=== PATIENT | female | born 1980 | race Caucasian/White ===

== ENCOUNTER → 2023-11-03 08:05 | Outpatient (REF) | payer OTHER, SELFPAY | LOC: WDC 08:05 | PROVIDERS: ATTENDING PHYSICIAN Nurse Practitioner Family; FAMILY PHYSICIAN Registered Nurse | DX: Z12.31 Encounter for screening mammogram for malignant neoplasm of breast (principal) | CPT/HCPCS: 77063; 77067 ==

== ENCOUNTER 2023-11-30 15:56 | Emergency (ER) | payer OTHER, SELFPAY ==
[2023-11-30 16:10] VITALS: BP 135/95
[2023-11-30] MEDS: XANAX 0.5 MG PO (16:20)
--- NOTE | 2023-11-30 16:20 | ED.PDOC.TRB ---
ED Provider Triage
-
A medical screening examination has been initiated by a qualified medical provider. Based on the assessment performed at this time, it has been determined that an emergent medical condition may exist and the patient has been informed that further
medical evaluation and possible additional diagnostic testing may be needed.
HPI: This is a medical evaluation conducted in person to initiate diagnostic evaluation and provide initial therapeutics. Please see further documentation by the treating clinician.
GENERAL: Alert , tearful but calm and cooperative
NECK: Trachea midline
ENT: No visible abnormalities.
LUNGS: No acute respiratory distress
NEUROLOGICAL: Alert and oriented
SKIN: Skin intact. No visible changes.
MUSCULOSKELETAL: Moving extremities normally
PSYCH: Calm and cooperative
43-year-old female with history of bipolar disorder on lithium and Wellbutrin reporting with her for concerns for SI which has been most severe than she has ever had before. Patient has episodes of enmanuel and depression no dizziness severe
depression currently. Her is never seen her like this. She took 1 extra tablet of Ativan 2 nights ago and has been making comments to him about not wanting to live. He brought her in for crisis evaluation and patient while over in the
crisis department was becoming quite agitated. They sent her here for workup and potentially medication for her anxiety. Patient is calm cooperative, flat affect here. She is complaining of headache which is chronic because of her migraines but
also she said that she is having a hard time focusing. She is not sleeping well. She denies taking any other drugs or alcohol within 10 to harm herself.
Patient says Xanax actually helps her better than Ativan to be calm. Will evaluate with labs and a head CT given her headache with visual changes but I suspect this is all related to her not sleeping and being depressed. Patient will need
placement via crisis after being medically cleared
[2023-11-30 16:56] VITALS: BMI 20.2
[2023-11-30 17:11] LABS: % Basophils 0.5 % (0-2); % Eosinophils 2.4 % (0-6); % Immature Granulocytes 0.4 % (0-0.5); % Lymphocytes 19.4 % (20.5-51.1); % Monocytes 5.3 % (1.7-9.3); Absolute Basophils 0.1 10^3/uL (0-0.2); Absolute Eosinophils 0.3 10^3/uL (0-0.7); Absolute Monocytes 0.6 10^3/uL (0.1-0.6); Absolute Neutrophils 7.5 10^3/uL (1.4-6.5); Hematocrit 40.3 % (37.0-47.0); Hemoglobin 14.5 g/dL (12.0-16.0); Mean Corpuscular Hgb 33.9 pg (27.0-31.0); Mean Corpuscular Volume 94.2 fL (81.0-99.0); Mean Platelet Volume 9.2 fL (7.4-10.4); Nucleated Red Blood Cells % 0 %; Platelet Count 297 10^3/uL (130-400); Red Blood Cell Count 4.28 10^6/uL (4.20-5.40); Red Cell Dist. Width 12.4 % (11.5-14.5); White Blood Cell Count 10.5 10^3/uL (4.8-10.8)
[2023-11-30 17:21] LABS: HCG, Serum Qualitative Screen Negative
[2023-11-30 17:23] LABS: ALT (SGPT) 21 U/L (0-35); AST (SGOT) 29 U/L (14-36); Albumin 5.2 g/dl (3.5-5.0); Alkaline Phosphatase 63 U/L (38-126); Blood Urea Nitrogen 17 mg/dl (7-17); Calcium 10.4 mg/dl (8.4-10.2); Carbon Dioxide 24 mmol/L (22-30); Chloride 103 mmol/L (98-107); Estimated Creatinine Clearance 92 ml/min; Glucose 81 mg/dl (70-99); Lithium 0.3 mmol/L (0.6-1.2); Potassium 4.1 mmol/L (3.5-5.1); Sodium 140 mmol/L (135-145); Total Bilirubin 1.2 mg/dl (0.2-1.3); eGFR > 60.00
[2023-11-30 18:39] VITALS: BP 118/77
--- NOTE | 2023-11-30 18:57 | ED.GENMED ---
History of Present Illness
General
Chief Complaint: Psychiatric Problem
Source: patient and spouse
Time Seen by Provider: 11/30/23 18:20
History of Present Illness
History of Present Illness:
43-year-old female presents emergency department with increasing thoughts of increasing depression, suicidal ideation with a plan of taking excessive Xanax. Patient was brought over the emergency department for medical clearance. She also notes
intermittent headaches and when she gets very upset her vision will feel like it is 'closing in' although she is not experiencing that now. She denies numbness, tingling, focal weakness, chest pain, shortness of breath, or other complaints. Exam
unremarkable here with the exception of flat affect. Labs CT unremarkable.
Past History
Past History
ED Past Medical History: Hypothyroidism and Psychiatric
Social History
Tobacco: Non-smoker
Alcohol: Occasional
Drug: None
Personal:
Living: with family
Employment: Employed
Family History
Family History: CAD and Other (A. fib); Negative Early CAD
Phy Exam
Physical Exam
Physical Exam:
GENERAL: Alert , in no apparent distress
EYE: pupils equal and reactive
NECK: Supple, no significant adenopathy.
ENT: o/p clr, mmm.
CARDIAC: Regular rate and rhythm .
LUNGS: Clear breath sounds bilaterally, no acute respiratory distress, no wheezes/rales/rhonchi
ABDOMEN: Soft, without focal tenderness, no r/g, no cvat
NEUROLOGICAL: Alert and oriented, no focal neuro deficits
SKIN: Warm and dry, skin intact.
MUSCULOSKELETAL: No edema, well perfused.
PSYCH: Flat affect, tearful at times
Course
Orders/Labs/Results
Orders:
Orders
11/30/23 16:13
Test Result ONCE
11/30/23 16:18
Alprazolam [Xanax] 0.5 mg PO NOW STA
11/30/23 16:19
CT Head W/o Iv Contrast Urgent
Comment:
Reason For Exam: headache, depression, SI;
Alprazolam [Xanax] 0.5 mg .ROUTE .STK-MED ONE
11/30/23 17:02
CMP [Comprehensive Metabolic Panel] Urgent
Complete Blood Count/With Diff Urgent
HCG, Serum Qualitative Screen Urgent
[place] Urgent
Abnormal Lab Results
11/30/23
17:02
MCH 33.9 H pg
(27.0-31.0)
Absolute Neuts (auto) 7.5 H 10^3/uL
(1.4-6.5)
Lymphocytes % 19.4 L %
(20.5-51.1)
Calcium 10.4 H mg/dl
(8.4-10.2)
Albumin 5.2 H g/dl
(3.5-5.0)
[place] 0.3 L mmol/L
(0.6-1.2)
11/30/23 17:02
11/30/23 17:02
Vital Signs
Initial and Last Documented VS:
Initial Vital Signs
Temp Pulse Resp BP Pulse Ox
98.1 F 106 18 135/95 98
11/30/23 16:10 11/30/23 16:10 11/30/23 16:10 11/30/23 16:10 11/30/23 16:10
Last Documented Vital Signs
Temp Pulse Resp BP Pulse Ox
98.1 F 89 16 118/77 100
11/30/23 16:10 11/30/23 18:39 11/30/23 18:39 11/30/23 18:39 11/30/23 18:39
*Critical Care Note
Total Time (30-74mins, 75-104mins- exclusive of procedures): Not Applicable
Update Note
Update Note:
Patient presents to the Emergency Department with ___depression
Number and Complexity of Problems Addressed at the Encounter
� Chronic conditions affecting care:
� Acute Exacerbation and/or Progression of Chronic Illness:
� Differential Diagnosis includes: But not limited to depressive episode, anxiety, brain tumor, etc.
Amount and/or Complexity of Data to be Reviewed and Analyzed
� I performed an independent evaluation of and my interpretation is:
EKG:
CT: NAD
Xrays:
Laboratory Studies: Unremarkable
Other:
� Review of other/old records reveals:
� Clinical information was obtained by an independent historian:
� Prescriptions/Medications Considered but not given:
� Further testing considered but not performed:
Risk of Complications and/or Morbidity or Mortality of Patient Management
� Social determinants of health affecting care:
� Discussion with other providers (PCP, Hospitalists, Consultants, etc):
� Escalation of care including admission/observation vs risk of discharge considered: 7:01 PM patient does express to me feeling suicidal throughout the week and while she does not want to at this moment describes having a
plan. I strongly recommend that patient be placed inpatient for care. Case discussed with Emilia from crisis who agrees. Patient is medically cleared and will go over to crisis for further management.
ED Attending Note
-
Portions of this chart may have been created with voice recognition software.� Occasional wrong word or��sound alike� substitutions may have occurred due to the inherent limitations of voice recognition software.
Discharge Plan
Departure
Patient Disposition: Psych Facility
Date of Disposition: 11/30/23
Time of Disposition: 19:04
Condition: Fair
Discharge Problem:
Depression
Prescriptions:
No Action
Ativan:
1 tab PO HSPRN PRN (Reason: anxiety)
bupropion HCl 150 MG tablet sustained-release 12 hr
150 mg PO DAILY
lithium carbonate 150 MG capsule
300 mg PO HS
dextroamphetamine-amphetamine [Adderall XR] 20 MG capsule,extended release 24hr
20 mg PO DAILY
Referrals:
UNKNOWN - PT NOT,INTERVIEWE [Family Provider] -
Interventions
Interventions:
*Risk Screen - Suicide Last Done: 11/30/23 18:39
*General Assessment Last Done: 11/30/23 18:39
*Neglect/Abuse Screening Last Done: 11/30/23 18:39
ED- Fall Risk Assessment Last Done: 11/30/23 17:12
*ED COVID-19 Vaccine History Last Done: 11/30/23 18:39
*Nursing Disposition Last Done: 11/30/23 19:19
ED-Psychological Assessment Last Done: 11/30/23 17:12
Discharge Date and Time
Discharge Date/Time: 11/30/23 19:20
Print Language: [place]
== END 2023-11-30 19:20 ==
LOC: EMR 15:56
PROVIDERS: EMERGENCY PHYSICIAN Emergency Medicine
DX: F32.A Depression, unspecified (principal); R45.851 Suicidal ideations; R45.1 Restlessness and agitation; Z02.79 Encounter for issue of other medical certificate; F31.9 Bipolar disorder, unspecified; E03.9 Hypothyroidism, unspecified; G43.909 Migraine, unspecified, not intractable, without status migrainosus; Z91.030 Bee allergy status; Z91.010 Allergy to peanuts
CPT/HCPCS: 99284; 70450; 80053; 80178; 84703; 85025

== ENCOUNTER 2024-05-31 19:31 | Inpatient (IN) | payer OTHER, SELFPAY ==
[2024-05-31 09:34] VITALS: BP 106/67
[2024-05-31 09:56] LABS: % Basophils 0.5 % (0-2); % Eosinophils 4.6 % (0-6); % Immature Granulocytes 0.3 % (0-0.5); % Lymphocytes 21.6 % (20.5-51.1); % Monocytes 10.2 % (1.7-9.3); % Neutrophils 62.8 % (42.2-75.2); Absolute Eosinophils 0.4 10^3/uL (0-0.7); Absolute Lymphocytes 1.9 10^3/uL (1.2-3.4); Absolute Monocytes 0.9 10^3/uL (0.1-0.6); Absolute Neutrophils 5.5 10^3/uL (1.4-6.5); Hematocrit 44.6 % (37.0-47.0); Hemoglobin 14.9 g/dL (12.0-16.0); Mean Corp Hgb Conc. 33.4 g/dL (33.0-37.0); Mean Corpuscular Hgb 32.7 pg (27.0-31.0); Mean Platelet Volume 9.1 fL (7.4-10.4); Nucleated Red Blood Cells % 0 %; Platelet Count 192 10^3/uL (130-400); Red Blood Cell Count 4.55 10^6/uL (4.20-5.40); Red Cell Dist. Width 13.3 % (11.5-14.5); White Blood Cell Count 8.7 10^3/uL (4.8-10.8)
[2024-05-31 09:58] LABS: Urine Albumin 1+ (Neg - Trace); Urine Bilirubin Negative (Negative); Urine Character Clear (Clear); Urine Color Yellow; Urine Glucose Negative (Negative); Urine Ketone Negative (Negative); Urine Leukocyte 1+ (Negative); Urine Nitrite Negative (Negative); Urine Occult Blood Negative (Negative); Urine Urobilinogen 2+ (Neg - 1+)
[2024-05-31 10:11] LABS: HCG, Serum Qualitative Screen Negative
[2024-05-31 10:12] LABS: Albumin 3.9 g/dl (3.5-5.0); Alkaline Phosphatase 141 U/L (38-126); Blood Urea Nitrogen 13 mg/dl (7-17); Calcium 9.7 mg/dl (8.4-10.2); Carbon Dioxide 27 mmol/L (22-30); Chloride 102 mmol/L (98-107); Glucose 83 mg/dl (70-99); Lipase 257 U/L (23-300); Potassium 4.2 mmol/L (3.5-5.1); Sodium 134 mmol/L (135-145); Total Bilirubin 2.3 mg/dl (0.2-1.3); Total Protein 6.8 g/dl (6.3-8.2); eGFR > 60.00
[2024-05-31 10:48] LABS: AST (SGOT) 1074 U/L (14-36)
[2024-05-31 10:49] LABS: ALT (SGPT) 1363 U/L (0-35)
[2024-05-31 11:04] LABS: Urine Squamous Cell 26-30 /LPF (Few)
[2024-05-31 11:05] LABS: Urine Amorphous Seen; Urine Red Blood Cell 0-2 /HPF (0-2)
[2024-05-31 11:06] LABS: Urine Bacteria Few (Negative)
[2024-05-31 11:07] LABS: Urine Mucus Few
[2024-05-31 12:02] VITALS: BP 111/79; BMI 20.9
[2024-05-31] MEDS: NSS 1000 IV (12:07)
[2024-05-31] MEDS: TORADOL 15 MG IV (12:13)
[2024-05-31] MEDS: ZOFRAN 4 MG IV (12:14)
[2024-05-31 12:28] LABS: INR 1.35; PT 16.9 Sec (11.4-14.6)
[2024-05-31 12:31] LABS: Hepatitis B Surface Antibody Negative; Hepatitis C Antibody Negative (Negative)
[2024-05-31 13:00] VITALS: BP 104/66
--- NOTE | 2024-05-31 14:16 | ED.GENMED ---
History of Present Illness
General
Chief Complaint: Abdominal Pain
Source: patient and spouse
Exam Limitations: none
Time Seen by Provider: 05/31/24 11:01
Nursing documentation reviewed up to this point in time: agreed with
History of Present Illness
History of Present Illness:
43-year-old female presenting to the emergency department today with concerns of generalized weakness fatigue over the past month or so but worsening abdominal pain over the past week and a half to the right upper quadrant has had nausea no vomiting
or diarrhea. Denies any specific inciting event no recent international travel no recent upper respiratory infections and no alcohol use. No new medications no recent antibiotic use
Past History
Past History
ED Past Medical History: Hypothyroidism and Psychiatric
Social History
Tobacco: Non-smoker
Alcohol: Occasional
Drug: None
Personal:
Living: with family
Employment: Employed
Family History
Family History: CAD and Other (A. fib); Negative Early CAD
Review of Systems
Review of Systems
Allergies reviewed?: Yes
All Other Systems: ROS reviewed and negative except as documented in HPI and ROS
Phy Exam
Physical Exam
Physical Exam:
GENERAL: Alert , in no apparent distress
EYE: pupils equal and reactive
NECK: Supple, no significant adenopathy.
ENT: o/p clr, mmm.
CARDIAC: Regular rate and rhythm .
LUNGS: Clear breath sounds bilaterally, no acute respiratory distress, no wheezes/rales/rhonchi
ABDOMEN: Vague discomfort to the right upper quadrant otherwise soft abdomen
NEUROLOGICAL: Alert and oriented, no focal neuro deficits
SKIN: Warm and dry, skin intact.
MUSCULOSKELETAL: No edema, well perfused.
PSYCH: Normal and appropriate interaction.
Course
Orders/Labs/Results
Orders:
Orders
05/31/24 09:38
Test Result ONCE
05/31/24 09:46
Complete Blood Count/With Diff Urgent
Comprehensive Metabolic Panel Urgent
HCG, Serum Qualitative Screen Urgent
Comment: Notify provider if positive test present
Hepatitis A Antibody, Total Urgent
Comment: ADD
Hepatitis A IgM Antibody Stat
Hepatitis B Core Ab, IgM Stat
Hepatitis B Surface Antibody Urgent
Comment: ADD
Hepatitis C Antibody Urgent
Comment: ADD
Lipase Urgent
[place] Urgent
Comment: ADD ON
Monotest Stat
Urinalysis Reflex To Culture Urgent
Date Specimen was Collected: 05/31/24
Time Specimen was Collected: 09:38
Urine Microscopic Reflex Cult Urgent
Urine Culture Urgent
WOOD Source: U
Specimen Description:
Date Specimen was Collected: 05/31/24
Time Specimen was Collected: 09:38
05/31/24 11:02
Add On- LAB Urgent
Tests Added?: ED Hepatitis panel
05/31/24 11:43
US Abdomen Complete/Upper Urgent
Comment:
Reason For Exam: ruq pain, elevated bili/lfts
05/31/24 11:54
Ketorolac [Toradol] 15 mg IV NOW STA
05/31/24 11:55
0.9% Sodium Chloride 1000 ml [Nss] 1,000 ml IV BOLUS
05/31/24 12:06
PT/INR [Prothrombin Time] Urgent
05/31/24 12:12
Ondansetron Injectable [Zofran] 4 mg .ROUTE .STK-MED ONE
05/31/24 12:14
Ondansetron Injectable [Zofran] 4 mg IV NOW STA
05/31/24 14:16
Add On- LAB Urgent
Tests Added?: lithium level
05/31/24 16:25
Add On- LAB Stat
Tests Added?: MONO
Abnormal Lab Results
05/31/24 05/31/24
09:46 12:06
MCH 32.7 H pg
(27.0-31.0)
Absolute Monos (auto) 0.9 H 10^3/uL
(0.1-0.6)
Monocytes % 10.2 H %
(1.7-9.3)
PT 16.9 H Sec
(11.4-14.6)
Sodium 134 L mmol/L
(135-145)
Total Bilirubin 2.3 H mg/dl
(0.2-1.3)
AST 1074 H* U/L
(14-36)
ALT 1363 H* U/L
(0-35)
Alkaline Phosphatase 141 H U/L
(38-126)
Urine Urobilinogen 2+ A
(Neg - 1+)
Leukocyte Esterase Rfl 1+ A
(Negative)
Urine Bacteria (Reflex) Few A
(Negative)
Urine Albumin (Reflex) 1+ A
(Neg - Trace)
05/31/24 09:46
05/31/24 09:46
Vital Signs
Initial and Last Documented VS:
Initial Vital Signs
Temp Pulse Resp BP Pulse Ox
97.8 F 89 16 106/67 100
05/31/24 09:34 05/31/24 09:34 05/31/24 09:34 05/31/24 09:34 05/31/24 09:34
Last Documented Vital Signs
Temp Pulse Resp BP Pulse Ox
97.8 F 78 16 104/66 95
05/31/24 09:34 05/31/24 16:50 05/31/24 09:34 05/31/24 13:00 05/31/24 16:30
MDM/Problems Addressed
MDM/Problems Addressed:
43-year-old female presenting to the emergency department today with concerns of right upper quadrant pain worsening over the past week and a half vague generalized symptoms over the past month. On initial labs patient has significant transaminitis
elevated bili. Labs consistent with hepatitis. Acute hepatitis panel was sent ultrasound showing hepatitis but otherwise no emergent findings specifically. Gastroenterology recommending additional testing plan to admit for further assessment.
*Critical Care Note
Total Time (30-74mins, 75-104mins- exclusive of procedures): Not Applicable
ED Attending Note
-
Portions of this chart may have been created with voice recognition software.� Occasional wrong word or��sound alike� substitutions may have occurred due to the inherent limitations of voice recognition software.
Discharge Plan
Departure
Patient Disposition: Admit
Date of Disposition: 05/31/24
Time of Disposition: 17:53
Admit to: Med/Surg
Admit to doctor: Zora
Presentation/result/management discussed w/ accepting MD/DO: Hospitalist
Patient with high blood pressure during this ER visit?: No
Condition: Good
Covid-19: Not Applicable
Discharge Problem:
Acute hepatitis
Prescriptions:
No Action
tretinoin 0.1 % Cream
1 applic TOPICAL HS
lithium carbonate 450 mg Tablet Extended Release
450 mg PO HS
trazodone 100 mg Tablet
100 mg PO HS
diphenhydramine HCl [Benadryl] 25 mg Capsule
25 mg PO HSPRN PRN (Reason: allergies)
ibuprofen [Motrin] 400 mg Tablet
400 mg PO Q6HPRN PRN (Reason: mild pain)
bupropion HCl [Wellbutrin XL] 150 mg Tablet Extended Release 24 Hr
150 mg PO DAILY
lisdexamfetamine [Vyvanse] 30 mg Capsule
30 mg PO DAILY
Referrals:
Lina Mandel CRNP [Family Provider] -
Interventions
Interventions:
*Risk Screen - Suicide Last Done: 05/31/24 09:34
*General Assessment Last Done: 05/31/24 09:34
*Neglect/Abuse Screening Last Done: 05/31/24 12:34
*ED COVID-19 Vaccine History Last Done: 05/31/24 09:34
RL-Sbxspx-Jccvplnwsl Assessment Last Done: 05/31/24 12:34
Discharge Date and Time
Print Language: [place]
[2024-05-31 14:32] LABS: Hepatitis A Antibody, Total Borderline (Negative)
[2024-05-31 15:44] LABS: Hepatitis A IgM Antibody Negative (Negative); Hepatitis B Core Ab, IgM Negative (Negative)
[2024-05-31 16:58] LABS: Monotest Negative (Negative)
--- NOTE | 2024-05-31 18:49 | HPS.HSE ---
Family Physician
-
Family Physician: Lina Mandel
Chief Complaint
-
abdominal pain
History of Present Illness
43-year-old female past medical history of thyroiditis, hypothyroidism, recently diagnosed bipolar 2 presenting with generalized weakness, fatigue for the past month and worsening abdominal pain over the past week with right upper
quadrant pain and chills. No nausea or vomiting. No diarrhea with no bowel movement in a week. No alcohol use. No new medications. No recent travel. She has also been having some blurry vision over this time.
She also has been having some cough and runny nose from a URI that she picked up from her children.
Her grandmother had primary biliary cirrhosis.
Denies smoking.
Medical History
Past Medical History
Past Medical History: Reports Other ( thyroiditis, hypothyroidism, recently diagnosed bipolar 2)
Past Surgical History: Reports None
Social History
Tobacco: Non-smoker
Alcohol: None
Drug: None
Family History
Family History: Not pertinent
Allergies / Home Medications
Allergies reflects when Allergies were last updated in [facility].
Home Medications with original date entered in [facility]
Allergy/Medication List:
Allergies
Allergy/AdvReac Type Severity Reaction Status Date / Time
bee venom protein (honey bee) Allergy Pharmacy Verified 05/31/24 09:37
to Review
peanut Allergy Pharmacy Verified 05/31/24 09:37
to Review
Home Medications
bupropion HCl 150 mg 24 hr tablet, extended release (Wellbutrin XL) 150 mg PO DAILY 05/31/24
diphenhydramine HCl 25 mg capsule (Benadryl) 25 mg PO HSPRN PRN allergies 05/31/24
ibuprofen 400 mg tablet 400 mg PO Q6HPRN PRN mild pain 05/31/24
lisdexamfetamine 30 mg capsule (Vyvanse) 30 mg PO DAILY 05/31/24
lithium carbonate 450 mg tablet,extended release 450 mg PO HS 05/31/24
trazodone 100 mg tablet 100 mg PO HS 05/31/24
tretinoin 0.1 % topical cream 1 applic topical HS face 05/31/24
Review of Systems
-
History Source: Patient
A 12 point ROS was completed and negative except as noted: Yes
Constitutional: Reports No Symptoms
EENT: Reports No Symptoms
Respiratory: Reports No Symptoms
Cardiac: Reports No Symptoms
Abdomen/GI: Reports See HPI
: Reports No Symptoms
Musculoskeletal: Reports No Symptoms
Skin: Reports No Symptoms
Neurological: Reports No Symptoms
Endocrine: Reports No Symptoms
Hematologic/Lymphatic: Reports No Symptoms
Psych: Reports No Symptoms
Physical Exam
Vital Signs
Vital Signs
Temp Pulse Resp BP Pulse Ox
97.8 F 81 16 104/66 95
05/31/24 09:34 05/31/24 18:22 05/31/24 09:34 05/31/24 13:00 05/31/24 18:22
Physical Exam
General: Well Developed, Well Nourished and No Apparent Distress
HEENT: NormoCephalic, Moist mucous membranes and Atraumatic
Respiratory: Clear
Cardiac: S1/S2 and Regular Rhythm; No Murmur or Rub
GI: Soft, Non Distended, Normal Bowel Sounds and Tender (diffusely ); No Organomegaly
Rectal: Deferred by Provider
Musculoskeletal: No Clubbing, No Cyanosis and No Edema
Skin: No Rash
Neuro: Nonfocal/grossly intact
Laboratory Results
-
05/31/24 09:46
05/31/24 09:46
Laboratory Results
PT 16.9 Sec (11.4-14.6) H 05/31/24 12:06
INR 1.35 05/31/24 12:06
Total Bilirubin 2.3 mg/dl (0.2-1.3) H 05/31/24 09:46
AST 1074 U/L (14-36) H* 05/31/24 09:46
ALT 1363 U/L (0-35) H* 05/31/24 09:46
Alkaline Phosphatase 141 U/L (38-126) H 05/31/24 09:46
Lipase 257 U/L (23-300) 05/31/24 09:46
Data Reviewed
-
Lab Data: Labs Reviewed by me
Old Records: Reviewed
Impression/Plan
-
IMPRESSION:
PLAN:
# Severe transaminitis secondary to hepatitis versus less likely
-Abdominal ultrasound shows no abnormality apart from slight liver echogenicity which can be seen with hepatitis
-[place], hepatitis panel pending
-Check MRCP
-Seems like could be autoimmune related since grandmother with primary biliary cirrhosis
-N.p.o. past midnight
-Zofran, Dilaudid
-GI consulted
# Covering your
History of autoimmune thyroiditis
Hypothyroidism
Bipolar 2
-Continue lithium, trazodone, bupropion, Vyvanse
-As needed Ativan for anxiety
Full code
DVT prophylaxis�heparin
N.p.o. past midnight
[2024-05-31 21:07] VITALS: BP 119/71
[2024-05-31] MEDS: ATIVAN 0.5 MG PO (22:04)
[2024-05-31] MEDS: DESYREL 100 MG PO (22:04)
[2024-05-31] MEDS: DILAUDID 0.5 MG IV (22:04)
[2024-05-31] MEDS: HEPARIN 5000 UNITS SC (22:06)
[2024-05-31] MEDS: ESKALITH ER (EXTENDED RELEASE) 450 MG PO (22:08)
[2024-05-31 23:30] VITALS: BP 96/63
[2024-06-01 07:01] LABS: % Basophils 0.3 % (0-2); % Eosinophils 5.5 % (0-6); % Immature Granulocytes 0.3 % (0-0.5); % Lymphocytes 27.4 % (20.5-51.1); % Monocytes 13.5 % (1.7-9.3); Absolute Eosinophils 0.3 10^3/uL (0-0.7); Absolute Lymphocytes 1.6 10^3/uL (1.2-3.4); Absolute Monocytes 0.8 10^3/uL (0.1-0.6); Absolute Neutrophils 3.2 10^3/uL (1.4-6.5); Hematocrit 38.6 % (37.0-47.0); Hemoglobin 12.9 g/dL (12.0-16.0); Mean Corp Hgb Conc. 33.4 g/dL (33.0-37.0); Mean Corpuscular Hgb 33.2 pg (27.0-31.0); Mean Corpuscular Volume 99.5 fL (81.0-99.0); Mean Platelet Volume 9.3 fL (7.4-10.4); Nucleated Red Blood Cells % 0 %; Platelet Count 154 10^3/uL (130-400); Red Blood Cell Count 3.88 10^6/uL (4.20-5.40); Red Cell Dist. Width 13.4 % (11.5-14.5)
[2024-06-01 07:26] LABS: Albumin 2.9 g/dl (3.5-5.0); Alkaline Phosphatase 118 U/L (38-126); Blood Urea Nitrogen 13 mg/dl (7-17); Calcium 8.8 mg/dl (8.4-10.2); Carbon Dioxide 28 mmol/L (22-30); Chloride 106 mmol/L (98-107); Estimated Creatinine Clearance 111 ml/min; Glucose 92 mg/dl (70-99); Potassium 4.3 mmol/L (3.5-5.1); Sodium 135 mmol/L (135-145); Total Protein 5.2 g/dl (6.3-8.2); eGFR > 60.00
[2024-06-01 07:35] VITALS: BP 109/69
[2024-06-01 07:36] LABS: ALT (SGPT) 1041 U/L (0-35); AST (SGOT) 857 U/L (14-36)
[2024-06-01] MEDS: HEPARIN 5000 UNITS SC ×2 (08:46→20:01)
[2024-06-01] MEDS: WELLBUTRIN XL (24 hour extended release) 150 MG PO (08:47)
[2024-06-01] MEDS: DILAUDID 0.5 MG IV ×3 (08:51→20:02)
[2024-06-01 09:23] LABS: Absolute Neutrophils -Man Diff 3.4 10^3/uL (1.4-6.5); Band Neutrophils 1 % (0-3); Eosinophils 4 % (0-6); Lymphocytes 30 % (20-51); Monocytes 7 % (2-9); Segmented Neutrophils 56 % (42-75)
[2024-06-01 09:25] LABS: Metamyelocytes 1 % (-); Normal RBC Morphology Yes; Platelets Checked Yes; Total Cells Counted 100
[2024-06-01 09:46] LABS: Acetaminophen < 10 ug/ml (10-30)
[2024-06-01 10:12] LABS: COVID-19 Antigen Negative (Negative)
--- NOTE | 2024-06-01 10:13 | CON.GI ---
Consultation
-
Date/Time Consultation Requested: 05/31/24 20:48
Date/Time Consultation Performed: 06/01/24 08.30
Requesting Provider: Emma Blakely MD
Performing Provider: Rossy Diego MD
Reason for Consultation: Transaminitis
Medical History
Chief Complaint / HPI
Chief Complaint: Feeling fatigue and weak
History of Present Illness:
Patient is a 43-year-old female with a past medical history of hypothyroidism, ADHD and bipolar disorder who presented to ER complaining from feeling fatigued for the past month and gradually worsening abdominal pain over the past 10 days which
started to be localized on the right upper side. Patient denies vomiting, diarrhea but endorses feeling nauseous since her symptoms started. Reports possibly having 1 episode of diarrhea about a month ago without any dark-colored stool and reports
having constipation for a long time (1-2 BM/ weekly). Reports having flulike symptoms with her children about 2 to 3 weeks ago, but reports she was not feeling good before having this flue. No history of hepatitis/no family member with hepatitis.
Reports her LFT levels were found slightly elevated about 1.5 months ago when her physician started a new medication (Ritalin 10 mg for 2-3 weeks) to address her ADHD, therefore it was switched to Vyvanse at that time. The patient also reports her
lithium dose was increased from 300 mg to 450 mg 2 months ago. Per patient report, her Wellbutrin dose was given at 600 mg in the mid-December for one week and decreased to 150 mg again. Denies any medication OTC/substance use/alcohol use.
Past Medical History
Past Medical History: Hypothyroidism and Psychiatric ( ADHD, bipolar disorder (on lithium))
Social History
Tobacco: Non-Smoker
Alcohol: Occasional
Drug: None
Personal:
Living: With Family
Employment: Employed
Family History
Family History: CAD and Other (Grandmother has primary biliary cirrhosis)
Allergies / Home Medications
Allergy/AdvReac Type Severity Reaction Status Date / Time
bee venom protein (honey bee) Allergy Pharmacy Verified 05/31/24 09:37
to Review
peanut Allergy Pharmacy Verified 05/31/24 09:37
to Review
�Medication �Instructions �Recorded
bupropion HCl 150 mg 24 hr tablet, 150 mg PO DAILY Mental 05/31/24
extended release (Wellbutrin XL) Health/Anxiety
diphenhydramine HCl 25 mg capsule 25 mg PO HSPRN PRN allergies 05/31/24
(Benadryl)
ibuprofen 400 mg tablet 400 mg PO Q6HPRN PRN mild pain 05/31/24
lisdexamfetamine 30 mg capsule 30 mg PO DAILY ADD 05/31/24
(Vyvanse)
lithium carbonate 450 mg 450 mg PO HS Mental Health/Anxiety 05/31/24
tablet,extended release
trazodone 100 mg tablet 100 mg PO HS Mental Health/Anxiety 05/31/24
tretinoin 0.1 % topical cream 1 applic topical HS face 05/31/24
Review of Systems
-
History Source: Patient
Constitutional: Reports No Symptoms
EENT: Reports No Symptoms
Respiratory: Reports No Symptoms
Cardiac: Reports No Symptoms
Abdomen/GI: Reports Abdominal Pain and Nausea
: Reports No Symptoms
Musculoskeletal: Reports Other (Generalized weakness-feeling fatigue and weak)
Skin: Reports No Symptoms
Neurological: Reports No Symptoms
Vital Signs
Temp Pulse Resp BP Pulse Ox
98.2 F 75 16 109/69 97
06/01/24 07:35 06/01/24 07:35 06/01/24 07:35 06/01/24 07:35 06/01/24 07:35
Physical Exam
Exam
General: Well Developed and Well Nourished
HEENT: Normocephalic and Anicteric
Respiratory: Clear
Cardiac: S1/S2 and Regular Rhythm
Breast: Deferred by me
GI: Soft, Non Tender (Mild tenderness on the right upper abdominal quadrant), Normal Bowel Sounds and Distended (Patient's reports feeling distended-last bowel movement 1 week ago)
Musculoskeletal: No Clubbing, No Cyanosis and No Edema
Skin: Warm and Dry
Neuro: Awake, Alert, Oriented, AO x 3 and Nonfocal/Grossly Intact
Psych: Calm and Other (Seems concerned)
Results
WBC 6.0 10^3/uL (4.8-10.8) 06/01/24 06:44
Hgb 12.9 g/dL (12.0-16.0) 06/01/24 06:44
Hct 38.6 % (37.0-47.0) 06/01/24 06:44
MCV 99.5 fL (81.0-99.0) H 06/01/24 06:44
Plt Count 154 10^3/uL (130-400) 06/01/24 06:44
Absolute Neuts (auto) 3.2 10^3/uL (1.4-6.5) 06/01/24 06:44
PT 16.9 Sec (11.4-14.6) H 05/31/24 12:06
INR 1.35 05/31/24 12:06
Sodium 135 mmol/L (135-145) 06/01/24 06:44
Potassium 4.3 mmol/L (3.5-5.1) 06/01/24 06:44
Chloride 106 mmol/L (98-107) 06/01/24 06:44
Carbon Dioxide 28 mmol/L (22-30) 06/01/24 06:44
BUN 13 mg/dl (7-17) 06/01/24 06:44
Creatinine 0.6 mg/dL (0.6-1.0) 06/01/24 06:44
Calcium 8.8 mg/dl (8.4-10.2) 06/01/24 06:44
Total Bilirubin 2.0 mg/dl (0.2-1.3) H 06/01/24 06:44
AST 857 U/L (14-36) H* 06/01/24 06:44
ALT 1041 U/L (0-35) H* 06/01/24 06:44
Alkaline Phosphatase 118 U/L (38-126) 06/01/24 06:44
Lipase 257 U/L (23-300) 05/31/24 09:46
Hepatitis A IgM Ab Negative (Negative) 05/31/24 09:46
Hepatitis A Ab Total Borderline (Negative) 05/31/24 09:46
Hep Bs Antibody Negative 05/31/24 09:46
Hep B Core IgM Ab Negative (Negative) 05/31/24 09:46
Hepatitis C Antibody Negative (Negative) 05/31/24 09:46
Diagnostic Image Results:
Abd US 05/31/24
IMPRESSION:
There is no sonographic evidence of acute cholecystitis or biliary duct dilation.
The liver appears slightly hypoechoic which can be seen with hepatitis.
Prior GI Procedures: No known scoping
EGD:
Colonoscopy:
Assessment / Plan
-
Assessment
Ms Garcia is a 43-year-old female with a past medical history of hypothyroidism, bipolar disorder and ADHD who presented to the hospital for an evaluation of feeling fatigued for the past month and gradually worsening abdominal pain over the past
10 days which started to be localized on the right upper side. Patient denies vomiting, diarrhea but endorses feeling nauseous since her symptoms started. Reports possibly having 1 episode of diarrhea about a month ago without any dark-colored
stool and reports having constipation for a long time (1-2 BM/ weekly). Reports having flulike symptoms with her children about 2 to 3 weeks ago. No history of hepatitis/no family member with hepatitis. Reports her LFT levels were found slightly
elevated about 1.5 months ago when her physician started a new medication (Ritalin) for her and it was discontinued at that time and was switched to Vyvanse. The patient also reports her lithium dose was increased from 300 mg to 450 mg 2 months
ago. She also reported being on Welbutrin for a few years and her dose temporarily increased to 600 mg in the mid-December for one week. The patient has a family history of primary biliary cirrhosis. At admission, abdominal ultrasound showed
slight liver echogenicity compliant with hepatitis and her lab results showed significantly elevated LFTs ( AST 1047, ALT 1363)
Impression
Transaminitis
Family history of primary biliary cirrhosis
Hypothyroidism
Bipolar disorder
ADHD
Plan
#Transaminitis possibly secondary to autoimmune vs viral infection vs drug-induced
-Abd US:The liver appears slightly hypoechoic which can be seen with hepatitis
-Hep panel negative (hepatitis A-AB total borderline: Will not help to distinguish any active/past viral hep A infection)added Hep B surface antigen
-[place] negative/COVID-negative
-Anti SMA, anti-mitochondrial antibodies (AMA), SREE, ceruloplasmin ordered
-MRI/MRCP pending
-LFTs trending down/follow-up, INR 1.35, PLT 154
-Trazodone (likelihood scorehttps://www.ncbi.nlm.nih.gov/books/n/livertox/glossary/def-item/glossary.likelihood-score/: B (likely but rare cause of clinically apparent liver injury).
-[place] level 1.0: Likelihood scorehttps://www.ncbi.nlm.nih.gov/books/n/livertox/glossary/def-item/glossary.likelihood-score/: E (unlikely cause of clinically apparent liver injury).
-Bupropion( https://www.ncbi.nlm.nih.gov/books/RZL364323/): The onset of injury is usually within 1-3 months/Can cause hepatocellular or cholestatic damage/(Likelihood
scorehttps://www.ncbi.nlm.nih.gov/books/n/livertox/glossary/def-item/glossary.likelihood-score/: C (probable rare cause of clinically apparent liver injury).
-U tox can be considered
GI team will follow up the patient.
-
-
Thank you for consultation and allowing me to participate in the patient's care. Please call the aboriginal liaison officer GI physician during the after hours with any questions or concerns.
--- NOTE | 2024-06-01 12:41 | W.PN.HOSP.TC ---
Today's Communication/Plan
-
Assessment / Plan
Assessment / Plan
NAD
Scleral Anicteric
MMM
No JVD
CTABL
RRR, S1/S2
Soft, right upper quadrant tenderness, ND, BS+
Warm, Dry
AAOx3
Transaminitis unclear etiology.
High levels like this could be consistent with shock liver however blood pressure has been normal. Acetaminophen toxicity but does not use heavily. Unlikely lithium/heavy metal toxicity. Cannot exclude autoimmue hep (aditi with know hx of autoimmune
disorders) or thrombosis
Check Tylenol level.
Check MRCP
GI consult
History of autoimmune thyroiditis
Bipolar 2
-Continue lithium, trazodone, bupropion, Vyvanse
-As needed Ativan for anxiety
Anticipated Discharge: > 48 hours
Subjective/Interval History
-
Date of Service: June 01, 2024
Seen and examined. No new complaints. No acute overnight events.
Tells me she does not drink tea. No changes in [id number]-[id number]-rqmcyta medications. Uses acetaminophen sparsely.
The only change in the past 1 month has been changing coffee for which to her and her throughout home. They get a big bag from [employer] dark room whole beans and then crying them at home
Objective Data
-
Labs:
Laboratory Results
06/01/24
06:44
WBC 6.0
Hgb 12.9
Hct 38.6
Plt Count 154
Sodium 135
Potassium 4.3
Chloride 106
Carbon Dioxide 28
BUN 13
Creatinine 0.6
Glucose 92
Calcium 8.8
Total Bilirubin 2.0 H
AST 857 H*
ALT 1041 H*
Alkaline Phosphatase 118
Vital Signs:
Vital Signs
Temp Pulse Resp BP Pulse Ox
98.2 F 75 16 109/69 97
06/01/24 07:35 06/01/24 07:35 06/01/24 07:35 06/01/24 07:35 06/01/24 07:35
[2024-06-01] MEDS: 0.45%NACL 1000 IV (12:56)
--- NOTE | 2024-06-01 13:00 | PTCARENOTE ---
Patient awaiting MRI of abdomen. Remains NPO. MD notified. Fluids started as per order.
--- NOTE | 2024-06-01 15:04 | CM ---
Patient seen bedside, sleeping.
IA completed with spouse
Patient lives with spouse in a 2 story home.
Patient at base line independent with ADLs and ambulation.
Patient drives, not currently working.
PCP: Dr Mandel
Pharmacy: [facility]
Plan: home no needs anticipated.
[2024-06-01 15:20] VITALS: BP 120/80
[2024-06-01 15:47] LABS: Iron 239 ug/dl (37-170)
[2024-06-01 15:56] LABS: Percent Saturation 73 % (20-50); Total Iron Binding Capacity 323 ug/dl (265-497)
[2024-06-01 16:20] LABS: Hepatitis B Surface Antigen Negative (Negative)
[2024-06-01 16:37] LABS: Hepatitis B Core Ab, Total Negative (Negative)
[2024-06-01] MEDS: ZOFRAN 4 MG IV (20:03)
[2024-06-01] MEDS: ATIVAN 0.5 MG PO (20:07)
[2024-06-01 22:13] LABS: Creatine Phosphokinase < 20 U/L (30-135); Salicylate < 1.0 mg/dl (2.0-20.0)
[2024-06-01] MEDS: ESKALITH ER (EXTENDED RELEASE) 450 MG PO (22:17)
[2024-06-01] MEDS: DESYREL 100 MG PO (22:17)
[2024-06-01 23:17] VITALS: BP 102/66
[2024-06-02] MEDS: 0.45%NACL 1000 IV ×2 (05:25→14:38)
[2024-06-02 07:10] VITALS: BP 101/70
[2024-06-02 07:34] LABS: % Basophils 0.3 % (0-2); % Eosinophils 6.4 % (0-6); % Immature Granulocytes 0.3 % (0-0.5); % Lymphocytes 23.9 % (20.5-51.1); % Monocytes 14.3 % (1.7-9.3); % Neutrophils 54.8 % (42.2-75.2); Absolute Eosinophils 0.4 10^3/uL (0-0.7); Absolute Lymphocytes 1.4 10^3/uL (1.2-3.4); Absolute Monocytes 0.9 10^3/uL (0.1-0.6); Absolute Neutrophils 3.3 10^3/uL (1.4-6.5); Mean Corp Hgb Conc. 32.5 g/dL (33.0-37.0); Mean Corpuscular Volume 101.5 fL (81.0-99.0); Mean Platelet Volume 9.5 fL (7.4-10.4); Nucleated Red Blood Cells % 0 %; Platelet Count 151 10^3/uL (130-400); Red Blood Cell Count 3.94 10^6/uL (4.20-5.40); Red Cell Dist. Width 13.3 % (11.5-14.5); White Blood Cell Count 5.9 10^3/uL (4.8-10.8)
[2024-06-02 07:55] LABS: INR 1.43
[2024-06-02 08:26] LABS: Albumin 2.9 g/dl (3.5-5.0); Alkaline Phosphatase 128 U/L (38-126); Blood Urea Nitrogen 9 mg/dl (7-17); Calcium 8.8 mg/dl (8.4-10.2); Carbon Dioxide 27 mmol/L (22-30); Chloride 104 mmol/L (98-107); Estimated Creatinine Clearance 111 ml/min; Glucose 95 mg/dl (70-99); Potassium 4.2 mmol/L (3.5-5.1); Sodium 132 mmol/L (135-145); Total Bilirubin 2.2 mg/dl (0.2-1.3); Total Protein 5.2 g/dl (6.3-8.2); eGFR > 60.00
[2024-06-02] MEDS: HEPARIN 5000 UNITS SC ×2 (08:38→20:06)
[2024-06-02 08:39] LABS: ALT (SGPT) 1129 U/L (0-35); AST (SGOT) 1105 U/L (14-36)
[2024-06-02] MEDS: WELLBUTRIN XL (24 hour extended release) 150 MG PO (08:39)
[2024-06-02] MEDS: MIRALAX 17 GRAMS PO (09:57)
[2024-06-02] MEDS: DILAUDID 0.5 MG IV (09:58)
--- NOTE | 2024-06-02 11:30 | W.PN.HOSP.TC ---
Today's Communication/Plan
-
Assessment / Plan
Assessment / Plan
NAD
Scleral Anicteric
MMM
No JVD
CTABL
RRR, S1/S2
Soft, right upper quadrant tenderness, ND, BS+
Warm, Dry
AAOx3
Transaminitis unclear etiology.
High levels like this could be consistent with shock liver however blood pressure has been normal. Acetaminophen toxicity but does not use heavily. Unlikely lithium/heavy metal toxicity. Cannot exclude autoimmue hep (aditi with know hx of autoimmune
disorders) or thrombosis
Tylenol negative
MRCP benign
GI following
Will talk to GI about obtain Liver Bx and potentially starting NAC drip.
May require transfer to liver center
Meld score 16
History of autoimmune thyroiditis
Bipolar 2
-Continue lithium, trazodone, bupropion, Vyvanse
-As needed Ativan for anxiety
Anticipated Discharge: > 48 hours
Subjective/Interval History
-
Date of Service: June 02, 2024
seen and exmained
no new complaints
no acute ovenright events
still does not feel the best
Objective Data
-
Labs:
Laboratory Results
06/02/24
06:55
WBC 5.9
Hgb 13.0
Hct 40.0
Plt Count 151
PT 18.0 H
INR 1.43
Sodium 132 L
Potassium 4.2
Chloride 104
Carbon Dioxide 27
BUN 9
Creatinine 0.6
Glucose 95
Calcium 8.8
Total Bilirubin 2.2 H
AST 1105 H*
ALT 1129 H*
Alkaline Phosphatase 128 H
Vital Signs:
Vital Signs
Temp Pulse Resp BP Pulse Ox
98.7 F 83 18 101/70 98
06/02/24 07:10 06/02/24 07:10 06/02/24 07:10 06/02/24 07:10 06/02/24 07:10
I&O
06/01/24 06/02/24 06/03/24
06:59 06:59 06:59
Intake Total 1490 / 1490
Output Total 200 / 200
Balance 1290 / 1290
--- NOTE | 2024-06-02 12:05 | W.PN.GI.CBS2 ---
Addendum entered and electronically signed by Shahida Jones MD 06/02/24 12:23:
unable to place HH genetic testing as inpatient
Original Note:
Today's Communication / Plan
-
NAC
Will [facility] liver line for possible transfer versus proceeding with liver biopsy here
Will DC Vyvanse for now
EBV serologies
HH testing
Assessment / Plan
-
Assessment
Ms Garcia is a 43-year-old female with a past medical history of hypothyroidism, bipolar disorder and ADHD who presented to the hospital for an evaluation of feeling fatigued for the past month and gradually worsening abdominal pain over the past
10 days which started to be localized on the right upper side. Patient denies vomiting, diarrhea but endorses feeling nauseous since her symptoms started. Reports possibly having 1 episode of diarrhea about a month ago without any dark-colored
stool and reports having constipation for a long time (1-2 BM/ weekly). Reports having flulike symptoms with her children about 2 to 3 weeks ago. No history of hepatitis/no family member with hepatitis. Reports her LFT levels were found slightly
elevated about 1.5 months ago when her physician started a new medication (Ritalin) for her and it was discontinued at that time and was switched to Vyvanse. The patient also reports her lithium dose was increased from 300 mg to 450 mg 2 months
ago. She also reported being on Welbutrin for a few years and her dose temporarily increased to 600 mg in the mid-December for one week. The patient has a family history of primary biliary cirrhosis. At admission, abdominal ultrasound showed
slight liver echogenicity compliant with hepatitis and her lab results showed significantly elevated LFTs ( AST 1047, ALT 1363)
Impression
RUQ pain
Transaminitis
Family history of primary biliary cirrhosis
Hypothyroidism
Bipolar disorder
ADHD
Plan
#Transaminitis possibly secondary to autoimmune vs PBC/overlap syndrome vs possible autoimmune viral infection vs drug-induced
so far has tested negative for viral hepatitis serologies and flu, monospot and COVID was also negative.
Acetaminophen level and salicylate level negative lithium level normal
Ferritin level elevated (could be acute phase reaction) but iron saturation level is also elevated may also need to rule out hemochromatosis will get genetic testing
Will get EBV serologies
Will get other workup to rule out other possible chronic liver diseases including SREE, AMA, ASMA, ceruloplasmin- P
MRI results noted other than mild splenomegaly and mildly distended gallbladder with mildly distended CBD but no gallstones and no cholecystitis noted
would have a low threshold for liver biopsy to rule out DILI since transaminases are rising and INR is also rising
Placed a call out to [facility] to see if she would be accepted in transfer there or they would recommend liver biopsy here first
Discussed with Dr. Dupont will start NAC for possible DILI
Will also DC Vyvance for now
Subjective
Subjective
Date of Service: June 02, 2024
patient still with profound fatigue and also right-sided abdominal pain
MRI showed normal liver no evidence of gallstones or cholecystitis
Objective
Data Reviewed
Laboratory Data:
Laboratory Results
06/02/24 06:55
06/02/24 06:55
Laboratory Results
PT 18.0 Sec (11.4-14.6) H 06/02/24 06:55
INR 1.43 06/02/24 06:55
Total Bilirubin 2.2 mg/dl (0.2-1.3) H 06/02/24 06:55
AST 1105 U/L (14-36) H* 06/02/24 06:55
ALT 1129 U/L (0-35) H* 06/02/24 06:55
Alkaline Phosphatase 128 U/L (38-126) H 06/02/24 06:55
Lipase 257 U/L (23-300) 05/31/24 09:46
Vital Signs and I&O:
Vital Signs
Temp Pulse Resp BP Pulse Ox
98.7 F 83 18 101/70 98
06/02/24 07:10 06/02/24 07:10 06/02/24 07:10 06/02/24 07:10 06/02/24 07:10
I&O
06/01/24 06/02/24 06/03/24
06:59 06:59 06:59
Intake Total 1490 / 1490
Output Total 200 / 200
Balance 1290 / 1290
IMPRESSION:
Nonspecific scattered trace free fluid. No focal collection.
The common bile duct is top normal in size. No evidence of choledocholithiasis. There is mild to moderate gallbladder distention with folded configuration. No gallbladder wall thickening or pericholecystic fluid.
Spleen is top normal in size.
Unremarkable appearance of liver and pancreas. Normal variant pancreatic divisum.
Physical Exam
Physical Exam
Cardiology: Normal Sinus Rhythm
Pulmonary: Clear
GI: Soft, Non Distended, Tender (Mild right-sided abdominal tenderness) and Normal Bowel Sounds
--- NOTE | 2024-06-02 12:23 | CM ---
Patient seen bedside, sleeping.
Spoke with spouse.
Spouse ayala of CM availability should needs arise.
Plan: home no needs
[2024-06-02] MEDS: ACETADOTE 242.8 MG IV (12:46)
[2024-06-02] MEDS: ZOFRAN 4 MG IV (13:31)
[2024-06-02 13:42] LABS: Amphetamines Negative (Negative); Barbiturates Negative (Negative); Benzodiazepines Negative (Negative); Buprenorphine Negative (Negative); Cocaine Negative (Negative); Marijuana Negative (Negative); Methadone Negative (Negative); Methamphetamines Negative (Negative); Opiates Positive (Negative); Phencyclidine Negative (Negative); Tricyclic Antidepressants Negative (Negative)
[2024-06-02 14:03] LABS: Fentanyl, Urine Negative (Negative)
--- NOTE | 2024-06-02 14:20 | W.PN.UPDATE ---
Update Note
Progress Note Update
Discussed with excavator operator at [facility] and presented her case he thinks that it possibly could be DILI pending all the other workup and would recommend NAC and also would recommend discontinuing Wellbutrin and closely monitoring her LFTs
and if they are not downtrending then we could reach out again for possible transfer. Discussed with Dr. Dupont also.
[2024-06-02] MEDS: ACETADOTE 514.3 MG IV (14:29)
--- NOTE | 2024-06-02 15:17 | CON.MD ---
Consultation - Medical
-
patient seen chart reviewed. spoke with nursing and with dr allison via text. the patient is a 43 year old woman dx with bipolar 2 who has struggled with depression most recently. she was hospitalized after being seen in the ER here in november of
2023. she was discharged to a program called [facility] for a residential stay then to [facility] which she is now completing. she was being rx with lithium 450 mg daily trazodone 100 mg q hs wellbutrin 100 mg current dose vyvanse 30 mg daily.
she has not taken vyvanse in a few days the others she has continued to take. he comes to with c/o weakness fatigue abdominal pain ruq pain nausea and vomiting. transaminitis (ast 1105 alt 1129) noted. the patient at present is in some
physical distress. she has been started on NAC. her face is flushed and there seem to be traces of a rash. dr Roni allison notified. wellbutrin dc'ed on the recommendation of [facility]. lithium has been continued as it is metabolized by the kidney.
discussed with patient and who was at bedside that i would suggest trazodone be dc'ed as well. the patient felt she had been doing reasonably well after the aforementioned rx until this started. she had been suicidal when hospitalized in
november. she feels that much effort went into finding a medication regimen that was in the end helpful to her until now. there is nothing to suggest psychosis
past psych hx one hospitalization as above. patient currently does not have a psychiatrist. she was in the process of being dc'ed from the [facility] program and setting up followup patient dx with mood disorder and with adhd
past medical hx patient with hs pcos migraines for which she has gotten botox rx ibs hypothyroid . the record says autoimmune thyroiditis and patient apparently had episode of hyperthyroid after her first rx with [facility]. subsequent to
another found to be hypothryoid and in need of synthroid tsh is nl today. noted lithium can cause hypothryoid but it appears her dx preceded taking lithium
substance abuse denied
fh denied for psych gm had biliary cirrhosis
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
mse patient in some physical distress. appears quite frail. speech and thought process seem normal. mood is apprehensive affect appropriate. she is clearly frightened and feels poorly. no si no psychosis aver intelligence insight judgment ok
dx bipolar two
plan i would dc any medication not immediately necessary which is metabolized by the liver i.e. trazodone and wellbutrin. would use ativan sparingly. have written for stat ativan iv at this moment as requested by nsg as patient very nauseated.
lithium is metabolized by the kidney so it is not a problem. will check level. will follow
[2024-06-02 15:30] VITALS: BP 141/95
[2024-06-02] MEDS: ATIVAN 0.5 MG IV (15:51)
[2024-06-02] MEDS: BENADRYL 50 MG IV (15:51)
[2024-06-02] MEDS: PEPCID 20 MG IV ×2 (15:53→20:07)
[2024-06-02] MEDS: NSS (PRESERVATIVE FREE) 8 ML IV ×2 (15:53→20:06)
[2024-06-02] MEDS: NSS (PRESERVATIVE FREE) 0.25 ML IV (16:08)
[2024-06-02] MEDS: ESKALITH ER (EXTENDED RELEASE) 450 MG PO (21:22)
[2024-06-02 22:06] VITALS: BP 131/88
[2024-06-03] VITALS (7 sets, daily range): BP systolic 74–128; BP diastolic 69–87
[2024-06-03 08:30] LABS: Lithium 0.7 mmol/L (0.6-1.2)
[2024-06-03 08:49] LABS: Free T4 1.49 ng/dl (0.78-2.19)
[2024-06-03] MEDS: HEPARIN SC (09:09)
[2024-06-03] MEDS: NSS (PRESERVATIVE FREE) 8 ML IV ×2 (09:21→19:50)
[2024-06-03] MEDS: PEPCID 20 MG IV ×2 (09:22→19:50)
[2024-06-03 09:27] LABS: Alkaline Phosphatase 140 U/L (38-126); Blood Urea Nitrogen 7 mg/dl (7-17); Carbon Dioxide 24 mmol/L (22-30); Chloride 105 mmol/L (98-107); Estimated Creatinine Clearance 111 ml/min; Glucose 72 mg/dl (70-99); Potassium 4.3 mmol/L (3.5-5.1); Sodium 132 mmol/L (135-145); Total Bilirubin 2.5 mg/dl (0.2-1.3); Total Protein 5.4 g/dl (6.3-8.2); eGFR > 60.00
[2024-06-03 09:43] LABS: ALT (SGPT) 1342 U/L (0-35); AST (SGOT) 1372 U/L (14-36)
--- NOTE | 2024-06-03 09:48 | PTCARENOTE ---
Patient returned from liver biopsy. Lethargic but easily arousable. Vitals signs stable. No evidence of bleeding. Educated patient and on bleeding precautions and need for bedrest until 1130am. Both verbalize understanding of teaching and
deny questions at this time.
--- NOTE | 2024-06-03 10:17 | W.PN.HOSP.TC ---
Today's Communication/Plan
-
Assessment / Plan
Assessment / Plan
NAD
Scleral Anicteric
MMM
No JVD
CTABL
RRR, S1/S2
Soft, right upper quadrant tenderness, ND, BS+
Warm, Dry
AAOx3
Transaminitis unclear etiology.
High levels like this could be consistent with shock liver however blood pressure has been normal. Acetaminophen toxicity but does not use heavily. Unlikely lithium/heavy metal toxicity. Cannot exclude autoimmue hep (aditi with know hx of autoimmune
disorders) or thrombosis
Tylenol negative
MRCP benign
GI following
Did not tolerate NAC drip.
Liver biopsy obtained today follow-up pathology
May require transfer to liver center
Meld score 16
History of grandmother having autoimmune primary biliary cirrhosis
History of autoimmune thyroiditis
Bipolar 2
-Continue lithium
-Discontinue trazodone, Wellbutrin and Vyvanse
-As needed Ativan for anxiety
Anticipated Discharge: > 48 hours
Subjective/Interval History
-
Date of Service: June 03, 2024
Seen and examined. No new complaints. No acute overnight events.
Today s/p liver biopsy. Tolerated procedure well. Somewhat sleepy and tired from anesthesia.
Yesterday while on NAC drip developed facial flushing. NAC drip was discontinued provided IV Pepcid and Benadryl with improvement.
Objective Data
-
Labs:
Laboratory Results
06/03/24 06/03/24
07:27 08:42
Sodium 132 L Cancelled
Potassium 4.3 Cancelled
Chloride 105 Cancelled
Carbon Dioxide 24 Cancelled
BUN 7 Cancelled
Creatinine 0.5 L Cancelled
Glucose 72 Cancelled
Calcium 9.0 Cancelled
Total Bilirubin 2.5 H Cancelled
AST 1372 H* Cancelled
ALT 1342 H* Cancelled
Alkaline Phosphatase 140 H Cancelled
Vital Signs:
Vital Signs
Temp Pulse Resp BP Pulse Ox
97.6 F 78 18 128/84 98
06/03/24 09:45 06/03/24 09:45 06/03/24 09:45 06/03/24 09:45 06/03/24 09:45
I&O
06/02/24 06/03/24 06/04/24
06:59 06:59 06:59
Intake Total 1490 / 1490 480 / 480
Output Total 200 / 200
Balance 1290 / 1290 480 / 480
--- NOTE | 2024-06-03 12:50 | W.PN.UPDATE ---
Update Note
Progress Note Update
patient seen chart reviewed. at bedside. liver bx done this am. patient understandably is very very anxious. she has used one ativan daily. she feels quite weak and uncomfortable. she did sleep some but roommate kept her up during the night
as well. she is dismayed that lft's are on the increase. lithium level is 0.7. would not restart any other psych meds until the liver issue is settled. patient shared with me some of her life activities. she helps produce plays for the local
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 her was reassuring telling her he had contacted her colleagues and they were handling everything. will follow
[2024-06-03] MEDS: MIRALAX 17 GRAMS PO (13:01)
[2024-06-03] MEDS: SENOKOT-S 1 TABLET PO (16:04)
--- NOTE | 2024-06-03 17:13 | CM ---
Spoke with pt and at bedside.
Pt had liver biopsy.
Psychiatry saw pt .
Labs remains elevated.
PLAN: Probable home no needs
--- NOTE | 2024-06-03 17:34 | W.PN.GI.CBS2 ---
Today's Communication / Plan
-
Daily LFT/INR
Autoimmune serology pending
Follow-up liver biopsy results
Assessment / Plan
-
Assessment
Ms Garcia is a 43-year-old female with a past medical history of hypothyroidism, bipolar disorder and ADHD who presented to the hospital for an evaluation of feeling fatigued for the past month and gradually worsening abdominal pain over the past
10 days which started to be localized on the right upper side. Patient denies vomiting, diarrhea but endorses feeling nauseous since her symptoms started. Reports possibly having 1 episode of diarrhea about a month ago without any dark-colored
stool and reports having constipation for a long time (1-2 BM/ weekly). Reports having flulike symptoms with her children about 2 to 3 weeks ago. No history of hepatitis/no family member with hepatitis. Reports her LFT levels were found slightly
elevated about 1.5 months ago when her physician started a new medication (Ritalin) for her and it was discontinued at that time and was switched to Vyvanse. The patient also reports her lithium dose was increased from 300 mg to 450 mg 2 months
ago. She also reported being on Welbutrin for a few years and her dose temporarily increased to 600 mg in the mid-December for one week. The patient has a family history of primary biliary cirrhosis. At admission, abdominal ultrasound showed
slight liver echogenicity compliant with hepatitis and her lab results showed significantly elevated LFTs ( AST 1047, ALT 1363)
Impression
RUQ pain
Transaminitis
Family history of primary biliary cirrhosis
Hypothyroidism
Bipolar disorder
ADHD
06/03/2024 labs
AST 1372/ALT 1342/alkaline phosphatase 140/total bilirubin 2.5
Plan
# Elevated liver test-possible differential -DILI versus autoimmune vs viral
so far has tested negative for viral hepatitis serologies and flu, monospot and COVID was also negative.
Acetaminophen level and salicylate level negative lithium level normal
Ferritin level elevated (could be acute phase reaction) but iron saturation level is also elevated. need HFE testing
EBV serologies/immune markers pending
Patient underwent liver biopsy today
MRI results noted other than mild splenomegaly and mildly distended gallbladder with mildly distended CBD but no gallstones and no CBD stones
Dr. Jones placed a call out to [facility] liver line yesterday to see if she would be accepted in transfer there or they would recommend liver biopsy here first-advised continue monitoring
Patient did not tolerate NAC
Medical team discontinue trazodone/Wellbutrin/Vynase. They will continue lithium.
will follow - daily LFT/INR . Will call back tertiary liver center if worsening liver test
Total Time Spent with Patient (in minutes): 35
Subjective
Subjective
Date of Service: June 03, 2024
Underwent liver biopsy today. Denies any GI complaints
Objective
Data Reviewed
Laboratory Data:
Laboratory Results
06/02/24 06:55
06/03/24 08:42
Laboratory Results
PT 18.0 Sec (11.4-14.6) H 06/02/24 06:55
INR 1.43 06/02/24 06:55
Total Bilirubin Cancelled 06/03/24 08:42
AST Cancelled 06/03/24 08:42
ALT Cancelled 06/03/24 08:42
Alkaline Phosphatase Cancelled 06/03/24 08:42
Lipase 257 U/L (23-300) 05/31/24 09:46
Vital Signs and I&O:
Vital Signs
Temp Pulse Resp BP Pulse Ox
98.2 F 93 18 122/84 96
06/03/24 15:15 06/03/24 15:15 06/03/24 15:15 06/03/24 15:15 06/03/24 15:15
I&O
06/02/24 06/03/24 06/04/24
06:59 06:59 06:59
Intake Total 1490 / 1490 480 / 480
Output Total 200 / 200
Balance 1290 / 1290 480 / 480
[2024-06-03] MEDS: ZOFRAN 4 MG IV (19:48)
[2024-06-03] MEDS: DILAUDID 0.5 MG IV (20:02)
[2024-06-03] MEDS: ESKALITH ER (EXTENDED RELEASE) 450 MG PO (21:27)
[2024-06-03] MEDS: BENADRYL 25 MG PO (21:46)
[2024-06-03 23:33] LABS: ANA, IgG Reflex to HEp-2 None Detected (None Detected)
[2024-06-03 23:39] LABS: Ceruloplasmin 20 mg/dL (16-45)
[2024-06-03 23:54] LABS: F-Actin Antibody IgG 8 Units (0-19); Mitochondrial M2 Ab, IgG 9.5 Units (0.0-24.9)
[2024-06-04 03:26] LABS: EBV-EA (D) Ab IgG 19.2 U/mL (0.0-10.9); EBV-NA IgG 38.8 U/mL (0.0-21.9); EBV-VCA IgM Antibodies >160.0 U/mL (0.0-43.9)
[2024-06-04 06:19] LABS: Hematocrit 41.8 % (37.0-47.0); Mean Corp Hgb Conc. 33.5 g/dL (33.0-37.0); Mean Corpuscular Volume 98.6 fL (81.0-99.0); Mean Platelet Volume 9.3 fL (7.4-10.4); Platelet Count 161 10^3/uL (130-400); Red Blood Cell Count 4.24 10^6/uL (4.20-5.40); Red Cell Dist. Width 13.4 % (11.5-14.5); White Blood Cell Count 6.6 10^3/uL (4.8-10.8)
[2024-06-04 06:29] LABS: Ammonia 54 umol/L (9-30); INR 1.39; PT 17.3 Sec (11.4-14.6)
[2024-06-04 06:41] LABS: Albumin 3.4 g/dl (3.5-5.0); Alkaline Phosphatase 162 U/L (38-126); Blood Urea Nitrogen 12 mg/dl (7-17); Calcium 9.1 mg/dl (8.4-10.2); Carbon Dioxide 25 mmol/L (22-30); Chloride 102 mmol/L (98-107); Estimated Creatinine Clearance 111 ml/min; Glucose 100 mg/dl (70-99); Potassium 4.1 mmol/L (3.5-5.1); Sodium 134 mmol/L (135-145); Total Bilirubin 2.4 mg/dl (0.2-1.3); Total Protein 5.9 g/dl (6.3-8.2); eGFR > 60.00
[2024-06-04 06:56] LABS: ALT (SGPT) 1413 U/L (0-35); AST (SGOT) 1483 U/L (14-36)
[2024-06-04 07:30] VITALS: BP 123/79
[2024-06-04] MEDS: PEPCID 20 MG IV ×2 (08:46→20:46)
[2024-06-04] MEDS: NSS (PRESERVATIVE FREE) 8 ML IV ×2 (08:46→20:45)
[2024-06-04 12:05] LABS: Albumin 3.6 g/dl (3.5-5.0); Alkaline Phosphatase 147 U/L (38-126); Blood Urea Nitrogen 11 mg/dl (7-17); Calcium 9.2 mg/dl (8.4-10.2); Carbon Dioxide 25 mmol/L (22-30); Chloride 102 mmol/L (98-107); Estimated Creatinine Clearance 111 ml/min; Glucose 117 mg/dl (70-99); Potassium 4.3 mmol/L (3.5-5.1); Sodium 133 mmol/L (135-145); Total Bilirubin 2.6 mg/dl (0.2-1.3); Total Protein 6.1 g/dl (6.3-8.2); eGFR > 60.00
[2024-06-04 12:13] LABS: INR 1.36; PT 17.1 Sec (11.4-14.6)
[2024-06-04 12:14] LABS: Fibrinogen 215 MG/DL (199-459)
--- NOTE | 2024-06-04 12:18 | W.PN.UPDATE ---
Update Note
Progress Note Update
Patient reports anxiety but her mood is relatively stable. Denies hopelessness or suicidal thoughts.
She is accepting the fact that she has to stay off potentially hepatotoxic meds. [place] level is 0.7 which is WNR.
She reports anxiety ans wishes she were in a single room which might help if it were available.
Will continue F/U.
[2024-06-04 12:34] LABS: ALT (SGPT) 1472 U/L (0-35); AST (SGOT) 1392 U/L (14-36)
--- NOTE | 2024-06-04 12:52 | W.PN.HOSP.TC ---
Today's Communication/Plan
-
Assessment / Plan
Assessment / Plan
NAD
Scleral Anicteric
MMM
No JVD
CTABL
RRR, S1/S2
Soft, right upper quadrant tenderness, ND, BS+
Warm, Dry
AAOx3
Transaminitis unclear etiology.
High levels like this could be consistent with shock liver however blood pressure has been normal. Acetaminophen toxicity but does not use heavily. Unlikely lithium/heavy metal toxicity. Cannot exclude autoimmue hep (aditi with know hx of autoimmune
disorders) or thrombosis
Repeat liver labs in the afgternoon
EBV IgM +, unfortunately will take time to resolve. Continue supportive care.
--Will need to avoid strenuous/contact activity avoid trauma to the abdomen to prevent splenic rupture
Tylenol negative
MRCP benign
GI following
Did not tolerate NAC drip.
Liver biopsy obtained today follow-up pathology
May require transfer to liver center
History of grandmother having autoimmune primary biliary cirrhosis
History of autoimmune thyroiditis
Bipolar 2
-Continue lithium
-Discontinue trazodone, Wellbutrin and Vyvanse
-As needed Ativan for anxiety
Anticipated Discharge: > 48 hours
Subjective/Interval History
-
Date of Service: June 04, 2024
Seen and examined. No new complaints. No acute overnight events.
Sleeping quite a bit.
Bedside provided update. Called blood [facility] service at [facility] this morning's. Spoke with Dr. Kellogg as who has recommended not to transfer at this time as synthetic function remains intact. Requested INR LFTs Fibrinogen. As synthetic function
is okay ammonia will clear.
Objective Data
-
Labs:
Laboratory Results
06/04/24 06/04/24
06:04 11:27
WBC 6.6
Hgb 14.0
Hct 41.8
Plt Count 161
PT 17.3 H 17.1 H
INR 1.39 1.36
Sodium 134 L 133 L
Potassium 4.1 4.3
Chloride 102 102
Carbon Dioxide 25 25
BUN 12 11
Creatinine 0.5 L 0.6
Glucose 100 H 117 H
Calcium 9.1 9.2
Total Bilirubin 2.4 H 2.6 H
AST 1483 H* 1392 H*
ALT 1413 H* 1472 H*
Alkaline Phosphatase 162 H 147 H
Vital Signs:
Vital Signs
Temp Pulse Resp BP Pulse Ox
98.4 F 72 16 123/79 97
06/04/24 07:30 06/04/24 07:30 06/04/24 07:30 06/04/24 07:30 06/04/24 07:30
I&O
06/03/24 06/04/24 06/05/24
06:59 06:59 06:59
Intake Total 480 / 480 1160 / 1160
Balance 480 / 480 1160 / 1160
--- NOTE | 2024-06-04 13:01 | W.PN.GI.CBS2 ---
Today's Communication / Plan
-
Continue monitor LFT/PT/INR
liver biopsy results pending
Supportive care
Assessment / Plan
-
Assessment
Ms Garcia is a 43-year-old female with a past medical history of hypothyroidism, bipolar disorder and ADHD who presented to the hospital for an evaluation of feeling fatigued for the past month and gradually worsening abdominal pain over the past
10 days which started to be localized on the right upper side. Patient denies vomiting, diarrhea but endorses feeling nauseous since her symptoms started. Reports possibly having 1 episode of diarrhea about a month ago without any dark-colored
stool and reports having constipation for a long time (1-2 BM/ weekly). Reports having flulike symptoms with her children about 2 to 3 weeks ago. No history of hepatitis/no family member with hepatitis. Reports her LFT levels were found slightly
elevated about 1.5 months ago when her physician started a new medication (Ritalin) for her and it was discontinued at that time and was switched to Vyvanse. The patient also reports her lithium dose was increased from 300 mg to 450 mg 2 months
ago. She also reported being on Welbutrin for a few years and her dose temporarily increased to 600 mg in the mid-December for one week. The patient has a family history of primary biliary cirrhosis. At admission, abdominal ultrasound showed
slight liver echogenicity compliant with hepatitis and her lab results showed significantly elevated LFTs ( AST 1047, ALT 1363)
Impression
RUQ pain
Transaminitis
Family history of primary biliary cirrhosis
Hypothyroidism
Bipolar disorder
ADHD
06/03/2024 labs
AST 1372/ALT 1342/alkaline phosphatase 140/total bilirubin 2.5
06/04/2024
AST 1392/ALT 1472/alkaline phosphatase 147/total bilirubin 2.6. INR 1.36
EBV capsid IgM antibody positive
Autoimmune markers SREE/AMA/F-actin negative
Plan
# Elevated liver test-possible differential -infectious versus possible component of DILI (liver test were elevated 04/2024 -AST 257/ALT 489/alkaline phosphatase 50/total bilirubin 1.3)
Positive EBV explains her current symptoms. It also explains current elevation in her LFT (likely component of DILI since her liver tests were elevated 04/2024 )
Follow-up liver biopsy results
Continue supportive care. Avoid strenuous/contact activity-to avoid risk of splenic rupture
Daily LFT/INR
Will not recommend following ammonia at this point
MRI results noted other than mild splenomegaly and mildly distended gallbladder with mildly distended CBD but no gallstones and no CBD stones
Dr. Jones placed a call out to [facility] liver line yesterday to see if she would be accepted in transfer there or they would recommend liver biopsy here first-advised continue monitoring
Patient did not tolerate NAC
Medical team discontinue trazodone/Wellbutrin/Vynase. They will continue lithium.
I had a long discussion with patient/patient's /medical team
Total Time Spent with Patient (in minutes): 35
Subjective
Subjective
Date of Service: June 04, 2024
Feeling fatigue with loss of appetite
Objective
Data Reviewed
Laboratory Data:
Laboratory Results
06/04/24 06:04
06/04/24 11:27
Laboratory Results
PT 17.1 Sec (11.4-14.6) H 06/04/24 11:27
INR 1.36 06/04/24 11:27
Total Bilirubin 2.6 mg/dl (0.2-1.3) H 06/04/24 11:27
AST 1392 U/L (14-36) H* 06/04/24 11:27
ALT 1472 U/L (0-35) H* 06/04/24 11:27
Alkaline Phosphatase 147 U/L (38-126) H 06/04/24 11:27
Lipase 257 U/L (23-300) 05/31/24 09:46
Vital Signs and I&O:
Vital Signs
Temp Pulse Resp BP Pulse Ox
98.4 F 72 16 123/79 97
06/04/24 07:30 06/04/24 07:30 06/04/24 07:30 06/04/24 07:30 06/04/24 07:30
I&O
06/03/24 06/04/24 06/05/24
06:59 06:59 06:59
Intake Total 480 / 480 1160 / 1160
Balance 480 / 480 1160 / 1160
Physical Exam
Physical Exam
GI: Soft, Non Distended and Non Tender
[2024-06-04 15:35] VITALS: BP 114/77
[2024-06-04] MEDS: ZOFRAN 4 MG IV (17:33)
[2024-06-04] MEDS: 0.45%NACL 1000 IV (18:01)
[2024-06-04] MEDS: ESKALITH ER (EXTENDED RELEASE) 450 MG PO (20:44)
[2024-06-04] MEDS: DILAUDID 0.5 MG IV (20:50)
[2024-06-04 23:31] VITALS: BP 113/77
[2024-06-05] MEDS: 0.45%NACL 1000 IV ×2 (04:04→18:12)
[2024-06-05] MEDS: ZOFRAN 4 MG IV ×3 (06:10→19:28)
[2024-06-05] MEDS: DILAUDID 0.5 MG IV ×2 (06:11→19:28)
[2024-06-05] MEDS: DULCOLAX 10 MG PO (06:36)
[2024-06-05 06:38] LABS: Hematocrit 44.9 % (37.0-47.0); Hemoglobin 15.3 g/dL (12.0-16.0); Mean Corp Hgb Conc. 34.1 g/dL (33.0-37.0); Mean Corpuscular Hgb 33.1 pg (27.0-31.0); Mean Corpuscular Volume 97.2 fL (81.0-99.0); Mean Platelet Volume 9.6 fL (7.4-10.4); Platelet Count 178 10^3/uL (130-400); Red Blood Cell Count 4.62 10^6/uL (4.20-5.40); Red Cell Dist. Width 13.4 % (11.5-14.5); White Blood Cell Count 10.1 10^3/uL (4.8-10.8)
[2024-06-05 06:41] LABS: INR 1.35; PT 16.9 Sec (11.4-14.6)
[2024-06-05 06:52] LABS: Albumin 3.7 g/dl (3.5-5.0); Alkaline Phosphatase 178 U/L (38-126); Blood Urea Nitrogen 11 mg/dl (7-17); Calcium 9.2 mg/dl (8.4-10.2); Carbon Dioxide 22 mmol/L (22-30); Chloride 103 mmol/L (98-107); Estimated Creatinine Clearance 111 ml/min; Glucose 80 mg/dl (70-99); Potassium 4.4 mmol/L (3.5-5.1); Sodium 132 mmol/L (135-145); Total Bilirubin 3.4 mg/dl (0.2-1.3); Total Protein 6.4 g/dl (6.3-8.2); eGFR > 60.00
[2024-06-05 07:04] LABS: ALT (SGPT) 1459 U/L (0-35); AST (SGOT) 1393 U/L (14-36)
[2024-06-05 08:12] VITALS: BP 105/70
[2024-06-05] MEDS: PEPCID 20 MG IV ×2 (08:49→21:20)
[2024-06-05] MEDS: SENOKOT-S 1 TABLET PO (08:49)
[2024-06-05] MEDS: NSS (PRESERVATIVE FREE) 8 ML IV ×2 (08:49→21:20)
[2024-06-05] MEDS: MIRALAX 17 GRAMS PO (08:49)
--- NOTE | 2024-06-05 09:56 | W.PN.HOSP.TC ---
Today's Communication/Plan
-
still not able to tolerate po intake well
continue ivf
encourage po intake
daily lft
follow up on liver bx results
Assessment / Plan
Assessment / Plan
NAD
Scleral Anicteric
MMM
No JVD
CTABL
RRR, S1/S2
Soft, right upper quadrant tenderness, ND, BS+
Warm, Dry
AAOx3
Transaminitis, ?autoimmune hep with + ebv igM vs drug induced
High levels like this could be consistent with shock liver however blood pressure has been normal. Acetaminophen toxicity but does not use heavily. Unlikely lithium/heavy metal toxicity. Cannot exclude autoimmue hep (aditi with know hx of autoimmune
disorders) or thrombosis
EBV IgM +, unfortunately will take time to resolve. Continue supportive care.
--Will need to avoid strenuous/contact activity avoid trauma to the abdomen to prevent splenic rupture
Tylenol negative
MRCP benign
GI following
Did not tolerate NAC drip.
Liver biopsy completed on 06/03 follow-up pathology
May require transfer to liver center
History of grandmother having autoimmune primary biliary cirrhosis
History of autoimmune thyroiditis
Bipolar 2
-Continue lithium
-Discontinue trazodone, Wellbutrin and Vyvanse
-As needed Ativan for anxiety
Anticipated Discharge: > 48 hours
Subjective/Interval History
-
Date of Service: June 05, 2024
seen and examiend
no new complaints
intermittent abd pain
still no bm
still not eating nor drinking well
updated at bedside
Objective Data
-
Labs:
Laboratory Results
06/05/24
06:14
WBC 10.1
Hgb 15.3
Hct 44.9
Plt Count 178
PT 16.9 H
INR 1.35
Sodium 132 L
Potassium 4.4
Chloride 103
Carbon Dioxide 22
BUN 11
Creatinine 0.5 L
Glucose 80
Calcium 9.2
Total Bilirubin 3.4 H
AST 1393 H*
ALT 1459 H*
Alkaline Phosphatase 178 H
Vital Signs:
Vital Signs
Temp Pulse Resp BP Pulse Ox
98 F 83 18 105/70 98
06/05/24 08:12 06/05/24 08:12 06/05/24 08:12 06/05/24 08:12 06/05/24 08:12
I&O
06/04/24 06/05/24 06/06/24
06:59 06:59 06:59
Intake Total 1160 / 1160
Balance 1160 / 1160
--- NOTE | 2024-06-05 11:26 | W.PN.UPDATE ---
Update Note
Progress Note Update
Patient is distressed about her medical condition particularly as prognosis is not clear. Fortunately her mood is relatively stable. She has anxiety which is understandable under the circumstances but is able to use relaxation techniques and her
is frequently present to provide support.
Since she is expected to stay in the hospital for longer stay and given her anxiety it would be to her benefit to be in single room.
For now I would continue current meds and we will continue F/U.
--- NOTE | 2024-06-05 12:41 | W.PN.GI.CBS2 ---
Today's Communication / Plan
-
Continue monitor LFT/INR
Follow-up liver biopsy results
Assessment / Plan
-
Assessment
Ms Garcia is a 43-year-old female with a past medical history of hypothyroidism, bipolar disorder and ADHD who presented to the hospital for an evaluation of feeling fatigued for the past month and gradually worsening abdominal pain over the past
10 days which started to be localized on the right upper side. Patient denies vomiting, diarrhea but endorses feeling nauseous since her symptoms started. Reports possibly having 1 episode of diarrhea about a month ago without any dark-colored
stool and reports having constipation for a long time (1-2 BM/ weekly). Reports having flulike symptoms with her children about 2 to 3 weeks ago. No history of hepatitis/no family member with hepatitis. Reports her LFT levels were found slightly
elevated about 1.5 months ago when her physician started a new medication (Ritalin) for her and it was discontinued at that time and was switched to Vyvanse. The patient also reports her lithium dose was increased from 300 mg to 450 mg 2 months
ago. She also reported being on Welbutrin for a few years and her dose temporarily increased to 600 mg in the mid-December for one week. The patient has a family history of primary biliary cirrhosis. At admission, abdominal ultrasound showed
slight liver echogenicity compliant with hepatitis and her lab results showed significantly elevated LFTs ( AST 1047, ALT 1363)
Impression
RUQ pain
Transaminitis
Family history of primary biliary cirrhosis
Hypothyroidism
Bipolar disorder
ADHD
06/03/2024 labs
AST 1372/ALT 1342/alkaline phosphatase 140/total bilirubin 2.5
06/04/2024
AST 1392/ALT 1472/alkaline phosphatase 147/total bilirubin 2.6. INR 1.36
06/05/2024
AST 1393/ALT 1459/alkaline phosphatase 178/total bilirubin 3.4 . INR 1.35
EBV capsid IgM antibody positive
Autoimmune markers SREE/AMA/F-actin negative
Plan
# Elevated liver test-possible differential -infectious versus possible component of DILI (liver test were elevated 04/2024 -AST 257/ALT 489/alkaline phosphatase 50/total bilirubin 1.3)
Positive EBV would explains some of her current symptoms. It also explains current elevation in her LFT (likely component of DILI since her liver tests were elevated 04/2024 )
Follow-up liver biopsy results
Continue supportive care. Avoid strenuous/contact activity-to avoid risk of splenic rupture
Daily LFT/INR
Will not recommend following ammonia at this point
MRI results noted other than mild splenomegaly and mildly distended gallbladder with mildly distended CBD but no gallstones and no CBD stones
Dr. Jones placed a call out to [facility] liver line to see if she would be accepted in transfer there or they would recommend liver biopsy here first-advised continue monitoring
Patient did not tolerate NAC
Medical team discontinue trazodone/Wellbutrin/Vynase. They will continue lithium.Psych following
I had a long discussion with patient/patient's /medical team
Total Time Spent with Patient (in minutes): 35
Subjective
Subjective
Date of Service: June 05, 2024
As per patient remains lethargic with loss of appetite.
Objective
Data Reviewed
Laboratory Data:
Laboratory Results
06/05/24 06:14
06/05/24 06:14
Laboratory Results
PT 16.9 Sec (11.4-14.6) H 06/05/24 06:14
INR 1.35 06/05/24 06:14
Total Bilirubin 3.4 mg/dl (0.2-1.3) H 06/05/24 06:14
AST 1393 U/L (14-36) H* 06/05/24 06:14
ALT 1459 U/L (0-35) H* 06/05/24 06:14
Alkaline Phosphatase 178 U/L (38-126) H 06/05/24 06:14
Lipase 257 U/L (23-300) 05/31/24 09:46
Vital Signs and I&O:
Vital Signs
Temp Pulse Resp BP Pulse Ox
98 F 83 18 105/70 98
06/05/24 08:12 06/05/24 08:12 06/05/24 08:12 06/05/24 08:12 06/05/24 08:50
I&O
06/04/24 06/05/24 06/06/24
06:59 06:59 06:59
Intake Total 1160 / 1160
Balance 1160 / 1160
Physical Exam
Physical Exam
GI: Soft, Non Distended and Tender
[2024-06-05 16:06] VITALS: BP 113/76
[2024-06-05] MEDS: 0.45%NACL IV (16:41)
--- NOTE | 2024-06-05 18:00 | PTCARENOTE ---
Patient received in to room 431. AAOx3. Family at bedside. IVF infusing. Patient oriented to unit and call french system. Able to make needs known.
[2024-06-05] MEDS: MILK OF MAGNESIA 30 ML PO (18:12)
[2024-06-05 18:37] VITALS: BP 119/83
[2024-06-05] MEDS: ATIVAN 0.5 MG PO (21:21)
[2024-06-05] MEDS: ESKALITH ER (EXTENDED RELEASE) 450 MG PO (21:21)
[2024-06-06 00:11] VITALS: BP 109/77
[2024-06-06] MEDS: 0.45%NACL 1000 IV (03:31)
[2024-06-06 07:00] VITALS: BP 115/75
[2024-06-06 08:42] LABS: Hematocrit 39.2 % (37.0-47.0); Hemoglobin 13.4 g/dL (12.0-16.0); Mean Corp Hgb Conc. 34.2 g/dL (33.0-37.0); Mean Corpuscular Hgb 33.3 pg (27.0-31.0); Mean Corpuscular Volume 97.5 fL (81.0-99.0); Mean Platelet Volume 9.7 fL (7.4-10.4); Platelet Count 162 10^3/uL (130-400); Red Blood Cell Count 4.02 10^6/uL (4.20-5.40); Red Cell Dist. Width 13.2 % (11.5-14.5); White Blood Cell Count 7.3 10^3/uL (4.8-10.8)
[2024-06-06 08:51] LABS: INR 1.57
[2024-06-06] MEDS: NSS (PRESERVATIVE FREE) 8 ML IV ×2 (09:11→19:27)
[2024-06-06] MEDS: PEPCID 20 MG IV ×2 (09:11→19:26)
[2024-06-06] MEDS: MIRALAX 17 GRAMS PO (09:11)
[2024-06-06] MEDS: SENOKOT-S 1 TABLET PO (09:11)
[2024-06-06 09:22] LABS: Albumin 3.1 g/dl (3.5-5.0); Alkaline Phosphatase 158 U/L (38-126); Blood Urea Nitrogen 9 mg/dl (7-17); Calcium 8.8 mg/dl (8.4-10.2); Carbon Dioxide 25 mmol/L (22-30); Chloride 103 mmol/L (98-107); Estimated Creatinine Clearance 111 ml/min; Glucose 78 mg/dl (70-99); Potassium 4.2 mmol/L (3.5-5.1); Sodium 132 mmol/L (135-145); Total Bilirubin 3.2 mg/dl (0.2-1.3); Total Protein 5.6 g/dl (6.3-8.2); eGFR > 60.00
[2024-06-06 09:38] LABS: ALT (SGPT) 1179 U/L (0-35); AST (SGOT) 979 U/L (14-36)
--- NOTE | 2024-06-06 13:18 | W.PN.HOSP.TC ---
Today's Communication/Plan
-
Follow-up liver pathology
Trend LFTs and avoid hepatotoxic agents
Consider steroid
Assessment / Plan
Assessment / Plan
#Transaminitis
-Differentials include autoimmune hepatitis with EBV IgM versus drug-induced; FHx (+) for PBC
-Low suspicion for acetaminophen toxicity versus lithium/heavy metal, low suspicion for shock liver
-Tylenol levels were negative, MRCP was benign; did not tolerate NAC drip
-Transaminases near 1500 at time of admission with bilirubin near 2-2.5
-Transaminases now improving, bilirubin stable; s/p liver biopsy 06/03
-Discontinued home trazodone, Wellbutrin, Vyvanse; remains on lithium
-Continue to trend LFTs and INR, avoid hepatotoxins
-Follow-up liver pathology
-Consider steroid
#Bipolar 2
-Discontinue trazodone, Wellbutrin, Vyvanse with concern of DILI
-Remains on lithium and as needed Ativan for anxiety
#Family history of primary biliary cirrhosis
#H/O autoimmune thyroiditis
DVT prophylaxis: Heparin
Diet: Low residue
CODE STATUS: Full code
Anticipated Discharge: > 48 hours
Subjective/Interval History
-
Date of Service: June 06, 2024
Seen and examined at the bedside. No acute is reported overnight. AFVSS as of this morning
Transaminases downtrending, bilirubin stable, INR improved
She denies any new complaints this morning. Still has some residual RUQ pain
Objective Data
-
Labs:
Laboratory Results
06/06/24
08:21
WBC 7.3
Hgb 13.4
Hct 39.2
Plt Count 162
PT 19.0 H
INR 1.57
Sodium 132 L
Potassium 4.2
Chloride 103
Carbon Dioxide 25
BUN 9
Creatinine 0.5 L
Glucose 78
Calcium 8.8
Total Bilirubin 3.2 H
AST 979 H*
ALT 1179 H*
Alkaline Phosphatase 158 H
Vital Signs:
Vital Signs
Temp Pulse Resp BP Pulse Ox
98.8 F 90 19 115/75 99
06/06/24 07:00 06/06/24 07:00 06/06/24 07:00 06/06/24 07:00 06/06/24 07:00
I&O
06/05/24 06/06/24 06/07/24
06:59 06:59 06:59
Intake Total 240 / 240
Balance 240 / 240
Review of Systems
-
History Source: Patient
All other systems: Reviewed and negative
Physical Exam
-
General: Well Developed, No Apparent Distress and Comfortable
HEENT: Normocephalic, Atraumatic and Moist Mucous Membranes
Respiratory: Clear to Auscultation and Non Labored Respirations
Cardiac: Regular Rhythm and S1/S2; Negative Murmur, Rub or Gallop
GI: Soft, Nontender, Nondistended and Normal Bowel Sounds
Musculoskeletal: No Clubbing, No Cyanosis and No Edema
Skin: Warm, Dry and Normal Turgor; Negative Rash
Neuro: AO x 3 and Nonfocal/Grossly Intact; Negative Tremors
Psych: Calm
Data Reviewed
-
Labs: Labs Reviewed by me and Discussed with Patient
--- NOTE | 2024-06-06 13:47 | W.PN.GI.CBS2 ---
Addendum entered and electronically signed by Ruma Shetty MD 06/06/24 17:02:
I saw and examined the patient.
The [employer] B[employer] CURER's note was reviewed and I agree with the note.
# Elevated liver test-possible differential -infectious versus possible component of DILI (liver test were elevated 04/2024 -AST 257/ALT 489/alkaline phosphatase 50/total bilirubin 1.3)
plan
Path regarding liver biopsy preliminary read suspicious for drug toxicity. Specimen was sent out for further evaluation. Discussed with patient's
Monitor LFT/INR
Continue current care
Original Note:
Today's Communication / Plan
-
as per plan
Assessment / Plan
-
Ms Garcia is a 43-year-old female with a past medical history of hypothyroidism, bipolar disorder and ADHD who presented to the hospital for an evaluation of feeling fatigued for the past month and gradually worsening abdominal pain over the past
10 days which started to be localized on the right upper side. Patient denies vomiting, diarrhea but endorses feeling nauseous since her symptoms started. Reports possibly having 1 episode of diarrhea about a month ago without any dark-colored
stool and reports having constipation for a long time (1-2 BM/ weekly). Reports having flulike symptoms with her children about 2 to 3 weeks ago. No history of hepatitis/no family member with hepatitis. Reports her LFT levels were found slightly
elevated about 1.5 months ago when her physician started a new medication (Ritalin) for her and it was discontinued at that time and was switched to Vyvanse. The patient also reports her lithium dose was increased from 300 mg to 450 mg 2 months
ago. She also reported being on Welbutrin for a few years and her dose temporarily increased to 600 mg in the mid-December for one week. The patient has a family history of primary biliary cirrhosis. At admission, abdominal ultrasound showed
slight liver echogenicity compliant with hepatitis and her lab results showed significantly elevated LFTs ( AST 1047, ALT 1363).
Impression
RUQ pain
Transaminitis
Family history of primary biliary cirrhosis
Hypothyroidism
Bipolar disorder
ADHD
06/03/2024 labs
AST 1372/ALT 1342/alkaline phosphatase 140/total bilirubin 2.5
06/04/2024
AST 1392/ALT 1472/alkaline phosphatase 147/total bilirubin 2.6. INR 1.36
06/05/2024
AST 1393/ALT 1459/alkaline phosphatase 178/total bilirubin 3.4 . INR 1.35
EBV capsid IgM antibody positive
Autoimmune markers SREE/AMA/F-actin negative
06/06/24
AST 979/ALT 1179/Alk Phos 159/T Bili 3.2 INR 1.52
Plan
# Elevated liver test-possible differential -infectious versus possible component of DILI (liver test were elevated 04/2024 -AST 257/ALT 489/alkaline phosphatase 50/total bilirubin 1.3)
Positive EBV would explains some of her current symptoms. It also explains current elevation in her LFT (likely component of DILI since her liver tests were elevated 04/2024 )
Follow-up liver biopsy results. Pathology to review today at 2pm.
Continue supportive care. Avoid strenuous/contact activity-to avoid risk of splenic rupture
Daily LFT/INR/CBC
Will not recommend following ammonia at this point
MRI results noted other than mild splenomegaly and mildly distended gallbladder with mildly distended CBD but no gallstones and no CBD stones
Dr. Jones placed a call out to [facility] liver line to see if she would be accepted in transfer there or they would recommend liver biopsy here first-advised continue monitoring
Patient did not tolerate NAC
Medical team discontinue trazodone/Wellbutrin/Vynase. They will continue lithium. Psych following
small meals throughout the day
Subjective
Subjective
Date of Service: June 06, 2024
Patient still with fatigue. Some mild nausea today after eating, however she just finished a [employer] hoagie and she has not had any significant solid intake in a while. Bili/AST/ALT lower today. Slight increase in INR 1.57 (up from 1.35). PLT
preserved at 162. EBV capsid IgM antibody positive, Autoimmune markers SREE/AMA/F-actin negative. Awaiting pathology from Liver bx, discussed with pathologist today and will be discussing at conference at 2 pm.
Objective
Data Reviewed
Laboratory Data:
Laboratory Results
06/06/24 08:21
06/06/24 08:21
Laboratory Results
PT 19.0 Sec (11.4-14.6) H 06/06/24 08:21
INR 1.57 06/06/24 08:21
Total Bilirubin 3.2 mg/dl (0.2-1.3) H 06/06/24 08:21
AST 979 U/L (14-36) H* 06/06/24 08:21
ALT 1179 U/L (0-35) H* 06/06/24 08:21
Alkaline Phosphatase 158 U/L (38-126) H 06/06/24 08:21
Lipase 257 U/L (23-300) 05/31/24 09:46
Vital Signs and I&O:
Vital Signs
Temp Pulse Resp BP Pulse Ox
98.8 F 90 19 115/75 99
06/06/24 07:00 06/06/24 07:00 06/06/24 07:00 06/06/24 07:00 06/06/24 07:00
I&O
06/05/24 06/06/24 06/07/24
06:59 06:59 06:59
Intake Total 240 / 240
Balance 240 / 240
Physical Exam
Physical Exam
HEENT: Anicteric
Cardiology: Normal Sinus Rhythm
Pulmonary: Clear
GI: Soft, Non Distended, Tender (mild RUQ and LUQ tenderness) and Normal Bowel Sounds
Extremities: No Edema
Neuro: Non Focal
[2024-06-06 15:00] VITALS: BP 132/86
[2024-06-06] MEDS: ATIVAN 0.5 MG PO (17:01)
[2024-06-06] MEDS: ZOFRAN 4 MG IV (17:13)
[2024-06-06] MEDS: ESKALITH ER (EXTENDED RELEASE) 450 MG PO (19:32)
[2024-06-06] MEDS: DILAUDID 0.5 MG IV (19:39)
[2024-06-06 23:41] VITALS: BP 118/81
[2024-06-07 07:23] VITALS: BP 117/74
[2024-06-07] MEDS: PEPCID 20 MG IV ×2 (07:50→20:08)
[2024-06-07] MEDS: ATIVAN 0.5 MG PO ×3 (07:50→20:09)
[2024-06-07] MEDS: NSS (PRESERVATIVE FREE) 8 ML IV ×2 (07:50→20:08)
[2024-06-07] MEDS: ZOFRAN 4 MG IV (07:51)
[2024-06-07 08:07] LABS: % Basophils 0.3 % (0-2); % Eosinophils 6.3 % (0-6); % Immature Granulocytes 0.3 % (0-0.5); % Lymphocytes 25.8 % (20.5-51.1); % Monocytes 10.6 % (1.7-9.3); % Neutrophils 56.7 % (42.2-75.2); Absolute Eosinophils 0.4 10^3/uL (0-0.7); Absolute Lymphocytes 1.8 10^3/uL (1.2-3.4); Absolute Monocytes 0.7 10^3/uL (0.1-0.6); Hematocrit 41.3 % (37.0-47.0); Hemoglobin 13.8 g/dL (12.0-16.0); Mean Corp Hgb Conc. 33.4 g/dL (33.0-37.0); Mean Corpuscular Hgb 32.6 pg (27.0-31.0); Mean Corpuscular Volume 97.6 fL (81.0-99.0); Mean Platelet Volume 9.7 fL (7.4-10.4); Nucleated Red Blood Cells % 0 %; Platelet Count 157 10^3/uL (130-400); Red Blood Cell Count 4.23 10^6/uL (4.20-5.40); Red Cell Dist. Width 13.3 % (11.5-14.5)
[2024-06-07 08:11] LABS: INR 1.44; PT 17.8 Sec (11.4-14.6)
[2024-06-07 08:39] LABS: Albumin 3.4 g/dl (3.5-5.0); Alkaline Phosphatase 160 U/L (38-126); Blood Urea Nitrogen 12 mg/dl (7-17); Calcium 9.3 mg/dl (8.4-10.2); Carbon Dioxide 25 mmol/L (22-30); Chloride 102 mmol/L (98-107); Direct Bilirubin 1.3 mg/dl (0.0-0.4); Estimated Creatinine Clearance 111 ml/min; Glucose 73 mg/dl (70-99); Potassium 4.2 mmol/L (3.5-5.1); Sodium 134 mmol/L (135-145); Total Bilirubin 3.2 mg/dl (0.2-1.3); Total Protein 5.9 g/dl (6.3-8.2); eGFR > 60.00
[2024-06-07 09:06] LABS: ALT (SGPT) 1123 U/L (0-35); AST (SGOT) 873 U/L (14-36)
[2024-06-07] MEDS: SENOKOT-S 1 TABLET PO (09:44)
[2024-06-07] MEDS: MIRALAX 17 GRAMS PO (09:44)
--- NOTE | 2024-06-07 10:12 | CM ---
Chart reviewed and plan is to home with spouse when stable.
Plan; Home with spouse when stable.
--- NOTE | 2024-06-07 11:05 | W.PN.HOSP.TC ---
Today's Communication/Plan
-
Discontinue trazodone/Wellbutrin/Vyvanse
Trend LFTs
Possible DC later with OP GI follow-up
Assessment / Plan
Assessment / Plan
#Drug-induced liver injury
-Liver pathology consistent with likely drug-induced liver injury; likely incidental EBV IgM positivity
-Candidates for etiology include trazodone versus Wellbutrin versus Vyvanse; Vyvanse less likely
-Low suspicion for acetaminophen toxicity versus lithium/heavy metal, low suspicion for shock liver
-Tylenol levels were negative, MRCP was benign; did not tolerate NAC drip
-Transaminases near 1500 at time of admission with bilirubin near 2-2.5
-Transaminases now improving, bilirubin stable; s/p liver biopsy 06/03
-Discontinued home trazodone, Wellbutrin, Vyvanse; remains on lithium
-Continue to trend LFTs and INR, avoid hepatotoxins
-Follow-up liver send out pathology
#Bipolar 2
-Discontinue trazodone, Wellbutrin, Vyvanse with concern of DILI
-Remains on lithium and as needed Ativan for anxiety
#Family history of primary biliary cirrhosis
#H/O autoimmune thyroiditis
DVT prophylaxis: Heparin
Diet: Low residue
CODE STATUS: Full code
Anticipated Discharge: Within 24 hours
Subjective/Interval History
-
Date of Service: June 07, 2024
Seen and examined at bedside. No acute events reported overnight. AFVSS this morning.
LFTs continuing to slowly downtrend. Pathology of liver biopsy consistent with likely drug-induced liver injury.
As of this morning states she feels tired, has ongoing mild abdomen discomfort but no new complaints
Objective Data
-
Labs:
Laboratory Results
06/07/24
06:47
WBC 7.0
Hgb 13.8
Hct 41.3
Plt Count 157
PT 17.8 H
INR 1.44
Sodium 134 L
Potassium 4.2
Chloride 102
Carbon Dioxide 25
BUN 12
Creatinine 0.5 L
Glucose 73
Calcium 9.3
Total Bilirubin 3.2 H
AST 873 H*
ALT 1123 H*
Alkaline Phosphatase 160 H
Vital Signs:
Vital Signs
Temp Pulse Resp BP Pulse Ox
98.1 F 81 14 117/74 100
06/07/24 07:23 06/07/24 07:23 06/07/24 07:23 06/07/24 07:23 06/07/24 07:23
I&O
06/06/24 06/07/24 06/08/24
06:59 06:59 06:59
Intake Total 240 / 240
Balance 240 / 240
Review of Systems
-
History Source: Patient
All other systems: Reviewed and negative
Physical Exam
-
General: Well Developed, No Apparent Distress and Comfortable
HEENT: Normocephalic, Atraumatic and Moist Mucous Membranes
Respiratory: Clear to Auscultation and Non Labored Respirations
Cardiac: Regular Rhythm and S1/S2; Negative Murmur, Rub or Gallop
GI: Soft, Nondistended, Normal Bowel Sounds and Tender (Mild generalized discomfort, no peritoneal sign)
Musculoskeletal: No Clubbing, No Cyanosis and No Edema
Skin: Warm and Dry; Negative Rash
Neuro: AO x 3 and Nonfocal/Grossly Intact
Psych: Calm
Data Reviewed
-
Labs: Labs Reviewed by me, Discussed with Physician (Gastroenterology) and Discussed with Patient
--- NOTE | 2024-06-07 11:21 | W.PN.GI.CBS2 ---
Addendum entered and electronically signed by Luis Armando Multani MD 06/07/24 16:58:
I saw and evaluated the patient. I reviewed the resident�s note and agree with findings and plan as documented in the resident�s note.
Pt reports nausea and not eating much. Attributes this somewhat to low residue diet
ABD soft mild RUQ tender
REC:
Try regular diet and encourage POs
LFTs and INR are largely unchanged but not worsening
Continue to hold buproprion, Vyvanse, trazadone as possible causes of drug induced liver injury. OK to continue lithium for mood stabilization
Trend LFT, INR
Hold off on d/c if pt unable to tolerate POs
Also EBV likely contributing to presentation
Await path from liver bx
Original Note:
Today's Communication / Plan
-
-Follow-up final liver biopsy results
-Continue supportive care
-Trend LFTs, T. bili, INR, CBC daily
Assessment / Plan
-
Ms Garcia is a 43-year-old female with a past medical history of hypothyroidism, bipolar disorder and ADHD who presented to the hospital for an evaluation of feeling fatigued for the past month and gradually worsening abdominal pain over the past
10 days which started to be localized on the right upper side. Patient denies vomiting, diarrhea but endorses feeling nauseous since her symptoms started. Reports possibly having 1 episode of diarrhea about a month ago without any dark-colored
stool and reports having constipation for a long time (1-2 BM/ weekly). Reports having flulike symptoms with her children about 2 to 3 weeks ago. No history of hepatitis/no family member with hepatitis. Reports her LFT levels were found slightly
elevated about 1.5 months ago when her physician started a new medication (Ritalin) for her and it was discontinued at that time and was switched to Vyvanse. The patient also reports her lithium dose was increased from 300 mg to 450 mg 2 months
ago. She also reported being on Welbutrin for a few years and her dose temporarily increased to 600 mg in the mid-December for one week. The patient has a family history of primary biliary cirrhosis. At admission, abdominal ultrasound showed
slight liver echogenicity compliant with hepatitis and her lab results showed significantly elevated LFTs ( AST 1047, ALT 1363).
Impression
RUQ pain
Transaminitis
Family history of primary biliary cirrhosis
Hypothyroidism
Bipolar disorder
ADHD
06/03/2024 labs
AST 1372/ALT 1342/alkaline phosphatase 140/total bilirubin 2.5
06/04/2024
AST 1392/ALT 1472/alkaline phosphatase 147/total bilirubin 2.6. INR 1.36
06/05/2024
AST 1393/ALT 1459/alkaline phosphatase 178/total bilirubin 3.4 . INR 1.35
EBV capsid IgM antibody positive
Autoimmune markers SREE/AMA/F-actin negative
06/06/24
AST 979/ALT 1179/Alk Phos 159/T Bili 3.2 INR 1.52
06/07/24
AST 873/ALT 1123 alkaline phosphatase 160/total bilirubin 3.2 . INR 1.44
Plan
# Elevated liver test-possible drug-induced vs infectious versus possible component of DILI (liver test were elevated 04/2024 -AST 257/ALT 489/alkaline phosphatase 50/total bilirubin 1.3)
Positive EBV would explains some of her current symptoms. It would also explains current elevation in her LFT (likely component of DILI since her liver tests were elevated 04/2024 )-possible incidentally EBV IgM positivity
Follow-up final liver biopsy results. Path regarding liver biopsy preliminary read suspicious for drug toxicity.
Continue supportive care. Avoid strenuous/contact activity-to avoid risk of splenic rupture
Daily LFT/INR/CBC
Will not recommend following ammonia at this point
MRI results noted other than mild splenomegaly and mildly distended gallbladder with mildly distended CBD but no gallstones and no CBD stones
Dr. Jones placed a call out to [facility] to see if she would be accepted in transfer there or they would recommend liver biopsy here first-advised continue monitoring
Patient did not tolerate NAC
Medical team discontinue trazodone/Wellbutrin/Vynase. They will continue lithium. Psych following
Small meals throughout the day
Subjective
Subjective
Date of Service: June 07, 2024
Patient reports feeling fatigue still and having less appetite. The patient reports feeling nauseous and having discomfort on her abdominal area since admission. Complains about feeling anxious and reports given some anxiety medication this
morning. The patient reports willing to have some pain medication to her abdominal discomfort/pain. EBV capsid IgM antibody positive, Autoimmune markers SREE/AMA/F-actin negative, ceruloplasmin level is normal. Awaiting final pathology from Liver
bx. result
Objective
Data Reviewed
Laboratory Data:
Laboratory Results
06/07/24 06:47
06/07/24 06:47
Laboratory Results
PT 17.8 Sec (11.4-14.6) H 06/07/24 06:47
INR 1.44 06/07/24 06:47
Total Bilirubin 3.2 mg/dl (0.2-1.3) H 06/07/24 06:47
AST 873 U/L (14-36) H* 06/07/24 06:47
ALT 1123 U/L (0-35) H* 06/07/24 06:47
Alkaline Phosphatase 160 U/L (38-126) H 06/07/24 06:47
Lipase 257 U/L (23-300) 05/31/24 09:46
Vital Signs and I&O:
Vital Signs
Temp Pulse Resp BP Pulse Ox
98.1 F 81 14 117/74 100
06/07/24 07:23 06/07/24 07:23 06/07/24 07:23 06/07/24 07:23 06/07/24 07:23
I&O
06/06/24 06/07/24 06/08/24
06:59 06:59 06:59
Intake Total 240 / 240
Balance 240 / 240
Physical Exam
Physical Exam
HEENT: Anicteric and Moist mucous membranes
Cardiology: Normal Sinus Rhythm, S1 and S2
Pulmonary: Clear
GI: Soft, Non Distended and Tender (On the lower abdominal area/no guarding/no rebound)
Extremities: No Edema
Neuro: Non Focal
[2024-06-07 11:35] VITALS: BP 146/87
[2024-06-07 15:00] VITALS: BP 97/60
[2024-06-07] MEDS: DILAUDID 0.5 MG IV (20:09)
[2024-06-07] MEDS: ESKALITH ER (EXTENDED RELEASE) 450 MG PO (22:15)
[2024-06-07 23:27] VITALS: BP 121/83
[2024-06-08 07:00] VITALS: BP 126/81
[2024-06-08] MEDS: PEPCID 20 MG IV (08:29)
[2024-06-08] MEDS: MIRALAX 17 GRAMS PO (08:29)
[2024-06-08] MEDS: NSS (PRESERVATIVE FREE) 8 ML IV (08:29)
[2024-06-08] MEDS: SENOKOT-S 1 TABLET PO (08:30)
[2024-06-08 08:56] LABS: Hematocrit 41.3 % (37.0-47.0); Mean Corp Hgb Conc. 33.9 g/dL (33.0-37.0); Mean Corpuscular Hgb 32.9 pg (27.0-31.0); Mean Corpuscular Volume 97.2 fL (81.0-99.0); Mean Platelet Volume 10.2 fL (7.4-10.4); Platelet Count 166 10^3/uL (130-400); Red Blood Cell Count 4.25 10^6/uL (4.20-5.40); Red Cell Dist. Width 13.4 % (11.5-14.5); White Blood Cell Count 6.9 10^3/uL (4.8-10.8)
[2024-06-08] MEDS: ATIVAN 0.5 MG PO (08:59)
[2024-06-08 09:25] LABS: Albumin 3.2 g/dl (3.5-5.0); Alkaline Phosphatase 156 U/L (38-126); Blood Urea Nitrogen 13 mg/dl (7-17); Calcium 9.1 mg/dl (8.4-10.2); Carbon Dioxide 26 mmol/L (22-30); Chloride 105 mmol/L (98-107); Estimated Creatinine Clearance 111 ml/min; Glucose 84 mg/dl (70-99); Potassium 4.2 mmol/L (3.5-5.1); Sodium 134 mmol/L (135-145); Total Bilirubin 2.9 mg/dl (0.2-1.3); Total Protein 5.9 g/dl (6.3-8.2); eGFR > 60.00
[2024-06-08 09:28] LABS: INR 1.36; PT 17.2 Sec (11.4-14.6)
[2024-06-08 09:36] LABS: ALT (SGPT) 1070 U/L (0-35); AST (SGOT) 770 U/L (14-36)
--- NOTE | 2024-06-08 10:14 | W.PN.HOSP.TC ---
Today's Communication/Plan
-
Trend LFTs and avoid hepatotoxins
Antiemetics
Encourage oral intake
Possible discharge later if tolerating diet
Follow-up send out pathology
Assessment / Plan
Assessment / Plan
#Drug-induced liver injury
-Liver pathology consistent with likely drug-induced liver injury; likely incidental EBV IgM positivity
-Candidates for etiology include trazodone versus Wellbutrin versus Vyvanse; Vyvanse less likely
-Low suspicion for acetaminophen toxicity versus lithium/heavy metal, low suspicion for shock liver
-Tylenol levels were negative, MRCP was benign; did not tolerate NAC drip
-Transaminases near 1500 at time of admission with bilirubin near 2-2.5
-Transaminases now improving, bilirubin stable; s/p liver biopsy 06/03
-Discontinued home trazodone, Wellbutrin, Vyvanse; remains on lithium
-Continue to trend LFTs and INR, avoid hepatotoxins
-Follow-up liver send out pathology
#Nausea
-Patient has complained of some queasiness, reduced oral intake
-States that she was able to have some pizza on evening of 06/07/2024
-Remains on Zofran as needed, added Compazine as well
-Encourage family to bring food from outside of hospital
-Monitor QTc
#Bipolar 2
-Discontinue trazodone, Wellbutrin, Vyvanse with concern of DILI
-Remains on lithium and as needed Ativan for anxiety
#Family history of primary biliary cirrhosis
#H/O autoimmune thyroiditis
DVT prophylaxis: Heparin
Diet: Low residue
CODE STATUS: Full code
Anticipated Discharge: Within 24 hours
Subjective/Interval History
-
Date of Service: June 08, 2024
Seen and examined at the bedside. No acute events reported overnight. AFVSS this morning
States that she feels a little bit queasy, has had nausea intermittently. States that she had some pizza last night which was her first good meal.
Denies any other new complaints as of this morning. LFTs continue to downtrend
Objective Data
-
Labs:
Laboratory Results
06/08/24 06/08/24
07:56 07:57
WBC 6.9
Hgb 14.0
Hct 41.3
Plt Count 166
PT 17.2 H
INR 1.36
Sodium 134 L
Potassium 4.2
Chloride 105
Carbon Dioxide 26
BUN 13
Creatinine 0.5 L
Glucose 84
Calcium 9.1
Total Bilirubin 2.9 H
AST 770 H*
ALT 1070 H*
Alkaline Phosphatase 156 H
Vital Signs:
Vital Signs
Temp Pulse Resp BP Pulse Ox
98.1 F 76 17 126/81 97
06/08/24 07:00 06/08/24 07:00 06/08/24 07:00 06/08/24 07:00 06/08/24 07:00
I&O
06/07/24 06/08/24 06/09/24
06:59 06:59 06:59
Intake Total 2280 / 2280
Balance 2280 / 2280
Review of Systems
-
History Source: Patient
All other systems: Reviewed and negative
Physical Exam
-
General: Well Developed, Well Nourished and No Apparent Distress
HEENT: Normocephalic, Atraumatic, Moist Mucous Membranes and Anicteric
Respiratory: Clear to Auscultation and Non Labored Respirations
Cardiac: Regular Rhythm and S1/S2; Negative Murmur, Rub or Gallop
GI: Soft, Nondistended, Normal Bowel Sounds and Tender (Mild right-sided abdomen tenderness, no peritoneal signs)
Musculoskeletal: No Clubbing, No Cyanosis and No Edema
Skin: Warm and Dry; Negative Rash or Jaundice
Neuro: AO x 3 and Nonfocal/Grossly Intact; Negative Tremors
Psych: Calm
Data Reviewed
-
Labs: Labs Reviewed by me, Discussed with Physician (Gastroenterology), Discussed with Patient and Discussed with Family
--- NOTE | 2024-06-08 10:46 | CM ---
Per physician notes patient is for possible discharge later today, plan is to home with spouse.
Plan; Home with spouse when stable.
--- NOTE | 2024-06-08 12:26 | W.PN.GI.CBS2 ---
Addendum entered and electronically signed by Luis Armando Multani MD 06/08/24 16:09:
I saw and evaluated the patient. I reviewed the resident�s note and agree with findings and plan as documented in the resident�s note.
Tolerated diet, some nausea, but improving.
ABD soft NT
REC:
OK for d/c at this point.
LFTs improving, INR improving
Recheck LFTs in 1 week and f/u to normalization
WIll sign off. Please call back if needed
Original Note:
Today's Communication / Plan
-
-Final liver biopsy still pending
-Follow LFTs, INR, CBC daily
Assessment / Plan
-
Assessment
Ms Garcia is a 43-year-old female with a past medical history of hypothyroidism, bipolar disorder and ADHD who presented to the hospital for an evaluation of feeling fatigued for the past month and gradually worsening abdominal pain over the past
10 days which started to be localized on the right upper side. Patient denies vomiting, diarrhea but endorses feeling nauseous since her symptoms started. Reports possibly having 1 episode of diarrhea about a month ago without any dark-colored
stool and reports having constipation for a long time (1-2 BM/ weekly). Reports having flulike symptoms with her children about 2 to 3 weeks ago. No history of hepatitis/no family member with hepatitis. Reports her LFT levels were found slightly
elevated about 1.5 months ago when her physician started a new medication (Ritalin) for her and it was discontinued at that time and was switched to Vyvanse. The patient also reports her lithium dose was increased from 300 mg to 450 mg 2 months
ago. She also reported being on Welbutrin for a few years and her dose temporarily increased to 600 mg in the mid-December for one week. The patient has a family history of primary biliary cirrhosis. At admission, abdominal ultrasound showed
slight liver echogenicity compliant with hepatitis and her lab results showed significantly elevated LFTs ( AST 1047, ALT 1363).
Impression
RUQ pain
Transaminitis
Family history of primary biliary cirrhosis
Hypothyroidism
Bipolar disorder
ADHD
06/03/2024 labs
AST 1372/ALT 1342/alkaline phosphatase 140/total bilirubin 2.5
06/04/2024
AST 1392/ALT 1472/alkaline phosphatase 147/total bilirubin 2.6. INR 1.36
06/05/2024
AST 1393/ALT 1459/alkaline phosphatase 178/total bilirubin 3.4 . INR 1.35
EBV capsid IgM antibody positive
Autoimmune markers SREE/AMA/F-actin negative
06/06/24
AST 979/ALT 1179/Alk Phos 159/T Bili 3.2 INR 1.52
06/07/24
AST 873/ALT 1123 alkaline phosphatase 160/total bilirubin 3.2 INR 1.44
06/08/24
AST 770/ALT 1070 alkaline phosphatase 156/total bilirubin 2.9 INR 1.36
Plan
# Elevated liver test-possible drug-induced vs infectious versus possible component of DILI (liver test were elevated 04/2024 -AST 257/ALT 489/alkaline phosphatase 50/total bilirubin 1.3)
Positive EBV would explains some of her current symptoms. It would also explains current elevation in her LFT (likely component of DILI since her liver tests were elevated 04/2024 )-possible incidentally EBV IgM positivity
Awaiting final liver biopsy results. Path regarding liver biopsy preliminary read suspicious for drug toxicity.
Continue supportive care. Avoid strenuous/contact activity-to avoid risk of splenic rupture
Daily LFT/INR/CBC- Seems LFTs and TB trending down
Will not recommend following ammonia at this point
MRI results noted other than mild splenomegaly and mildly distended gallbladder with mildly distended CBD but no gallstones and no CBD stones
Dr. Jones placed a call out to [facility] liver line to see if she would be accepted in transfer there or they would recommend liver biopsy here first-advised continue monitoring
Patient did not tolerate NAC
Medical team discontinue trazodone/Wellbutrin/Vynase. They will continue lithium. Psych following
Small meals throughout the day
Subjective
Subjective
Date of Service: June 08, 2024
Fells better comparing to previous days. Started to sleep more and still feels very fatigue. Mild tenderness on RUQ area to palpation
Objective
Data Reviewed
Laboratory Data:
Laboratory Results
06/08/24 07:57
06/08/24 07:57
Laboratory Results
PT 17.2 Sec (11.4-14.6) H 06/08/24 07:56
INR 1.36 06/08/24 07:56
Total Bilirubin 2.9 mg/dl (0.2-1.3) H 06/08/24 07:57
AST 770 U/L (14-36) H* 06/08/24 07:57
ALT 1070 U/L (0-35) H* 06/08/24 07:57
Alkaline Phosphatase 156 U/L (38-126) H 06/08/24 07:57
Lipase 257 U/L (23-300) 05/31/24 09:46
Vital Signs and I&O:
Vital Signs
Temp Pulse Resp BP Pulse Ox
98.1 F 76 17 126/81 97
06/08/24 07:00 06/08/24 07:00 06/08/24 07:00 06/08/24 07:00 06/08/24 07:00
I&O
06/07/24 06/08/24 06/09/24
06:59 06:59 06:59
Intake Total 2280 / 2280
Balance 2280 / 2280
Physical Exam
Physical Exam
HEENT: Anicteric and Moist mucous membranes
Cardiology: Normal Sinus Rhythm, S1 and S2
Pulmonary: Clear
GI: Soft, Non Distended, Tender (mild RUQ tender) and Other (some lower abdominal discomfort )
Extremities: No Edema
Neuro: Non Focal
[2024-06-08] MEDS: ZOFRAN 4 MG IV (13:44)
--- NOTE | 2024-06-08 13:51 | W.PN.UPDATE ---
Update Note
Progress Note Update
patient seen chart reviewed. at bedside. the patient's liver enzymres are beginning to come down at this point. she is understandably quite anxious. she would like to go home and there has been some discussion of dc tomorrow or the next day.
she expresses concern about using ativan for anxiety as she spent some time in the past getting off of it and she recognizes the potention for addiction. however it is also understandable that she is very anxious given the situation. discussed with
them and with dr zaragoza using gabapentin initially as a prn for anxiety. it is metabolized mostly but the kidney although there have been extremely rare instances of ? liver tox (two reports) will try 100 mg prn max three doses daily. she asked
about sleep meds. here i would refer her to google 'cognitive behavioral strategies for sleep' and try to find a non medication solution for sleep issues. continue lithium level o.7 mg will follow
[2024-06-08 15:00] VITALS: BP 132/91
[2024-06-08] MEDS: COMPAZINE 5 MG IV (15:47)
[2024-06-08] MEDS: NEURONTIN 100 MG PO (16:14)
--- NOTE | 2024-06-08 16:22 | W.DCSUMMARY ---
Discharge Summary
Discharge Data
Date of Admission: 05/31/24
Date of Discharge: 06/08/24
Total time spent discharging patient (in min): 33
-
Pending Results: Yes
Additional Pending Results:
Send out liver pathology
Hospital Course
Discharging Physician : Prateek Reece DO
Disposition : Home
Principal Discharge diagnosis :
Drug-induced liver injury (due to Vyvanse versus trazodone versus Wellbutrin)
Transaminitis
Chronic Discharge diagnosis :
Hypothyroidism
Bipolar disorder
History of thyroiditis
Family history of primary biliary cirrhosis
Hospital Course : 43-year-old female that presented to the hospital with abdominal pain, weakness, fatigue over 1 month's time. Initial ED labs showed significant transaminitis with AST and ALP >1500, bilirubin near 3. Serological testing for
mononucleosis and viral hepatitis showed positive EBV IgM, negative hepatitis serologies. Had serological workup for autoimmune hepatitis and PBC with SREE, ANCA, anti-smooth muscle antibody, cqto-[id number] antibody, antimitochondrial antibody however
all of these tests were unyielding. Subsequent MRCP/MRI did not show any signs of obstructive biliary disease. Tylenol levels were WNL. Was initially trialed on NAC however did not tolerate. Medications were reviewed and home Vyvanse,
Wellbutrin, trazodone were discontinued as they are associated with elevated liver enzymes. Harvel level was found to be within normal range. Psychiatry started her on as needed gabapentin for anxiety due to discontinuation of her other home
medications. Liver biopsy was performed on 06/03 with preliminary results consistent with drug-induced liver injury. Additional send out pathology was performed for further assessment, results pending at time of discharge. Monitored her LFTs
closely and they downtrended to AST 770, ALT 1070, T. bili 2.9 on day of discharge. Was treated with antiemetics for associated nausea which improved over hospitalization. Was able to tolerate oral diet prior to discharge. After discharge should
follow-up with PCP, has referral for GI appointment, should have LFTs and INR checked 1 week after discharge.
Consultants :
Gastroenterology -- Shahida Jones MD
Psychiatry -- Erendira Ziegler MD
Interventional radiology -- Tiburcio Longoria DO
Important imaging findings :
Abdominal ultrasound (05/31/2024)
IMPRESSION: There is no sonographic evidence of acute cholecystitis or biliary duct dilation. The liver appears slightly hypoechoic which can be seen with hepatitis.
Abdomen MRI/MRCP w/ and w/o IV contrast (06/01/2024)
IMPRESSION: Nonspecific scattered trace free fluid. No focal collection. The common bile duct is top normal in size. No evidence of choledocholithiasis. There is mild to moderate gallbladder distention with folded configuration. No gallbladder wall
thickening or pericholecystic fluid. Spleen is top normal in size. Unremarkable appearance of liver and pancreas. Normal variant pancreatic divisum. Constipation with moderate fecal burden.
Procedure findings :
Ultrasound guided parenchymal liver biopsy (06/03/24)
INDICATION: Question autoimmune hepatitis or drug-induced liver injury.
TECHNIQUE: The risks and benefits of the procedure were discussed with the patient and written informed consent was obtained. Time-out was performed to verify patient identity and site of procedure. The patient's right lobe of the liver was scanned,
local area was prepped and draped in the usual sterile fashion. Maximum sterile barrier technique was used throughout. 10 cc of 2% lidocaine local anesthesia was administered subcutaneously. Under physician supervision, divided doses of Versed and
fentanyl were administered intravenously for moderate sedation with continuous monitoring of pulse oximetry, heart rate, and blood pressure by an independent trained observer (coning machine operator). The physician spent 15 minutes of face to
face sedation time with the patient. Under real-time ultrasound guidance, a 17-gauge introducer was advanced into the right lobe of the liver. Using coaxial technique, 3 passes were obtained from the right lobe of the liver using an 18-gauge full
core biopsy device. The introducer needle was then removed and hemostasis was obtained with manual compression. A sterile dressing was applied. Patient tolerated the procedure well with no immediate complication.
Medications: Versed 1 mg IV, fentanyl 50 mcg IV.
Findings: 3 samples sent for pathology. Post biopsy ultrasound scanning showed no new abnormal perihepatic or abdominal wall collection.
IMPRESSION: Technically successful ultrasound guided parenchymal liver biopsy as described.
Follow-up :
Follow-up in office with PCP within 1 to 2 weeks, follow-up with GI on prescheduled appointment day
LFTs and INR 1 week after discharge from the hospital
Discharge Plan
-
Patient Disposition: Home (Routine Discharge)
Discharge Diagnosis/Procedures: Drug-induced liver injury
Condition: Good
Diet: No restrictions
Activity: As tolerated
Driving Restrictions: No driving for 24 hours
Bathing Restrictions: None
Blood Work: LFTs and INR 1 week after discharge, results sent to family doctor and GI referral
Others Tests: None
Activity Restrictions/Additional Instructions:
Schedule follow-up appointment with your family doctor, should be seen in office within 1 to 2 weeks of discharge from the hospital
Attend follow-up appointment with gastroenterology on 06/23/2024 at 7:30 AM. You will review results of send out pathology at that time with the automobile damage field appraiser
Referrals:
Lina Mandel CRNP [Family Provider] -
Shahida Jones MD [Active] - 06/27/24 7:30 am
Additional Discharge Medication Instructions: Stop taking bupropion (Wellbutrin), Vyvanse, trazodone until you speak with your automobile damage field appraiser in the office. It is possible that these 3 medications will be discontinued completely after final
pathology from your liver biopsy is resulted
Start gabapentin 100 mg every 6 hours as needed for anxiety. Do not exceed 3 doses in 1 day. Be caution as this medication may have sedating effects, do not drive or operate heavy machinery after taking this medicine
Take Zofran 8 mg sublingually as needed every 8 hours for nausea or vomiting
Prescriptions:
New
gabapentin 100 mg Capsule
100 mg PO Q6HPRN PRN (Reason: anxiety max three daily) 30 Days Qty: 90 0RF
ondansetron 8 mg tablet,disintegrating
8 mg PO Q8H PRN (Reason: nausea and vomiting) 5 Days Qty: 20 0RF
Continued
tretinoin 0.1 % Cream
1 applic TOPICAL HS
lithium carbonate 450 mg Tablet Extended Release
450 mg PO HS
diphenhydramine HCl [Benadryl] 25 mg Capsule
25 mg PO HSPRN PRN (Reason: allergies)
Held
trazodone 100 mg Tablet
100 mg PO HS
Hold Instructions: Until you speak with your automobile damage field appraiser
bupropion HCl [Wellbutrin XL] 150 mg Tablet Extended Release 24 Hr
150 mg PO DAILY
Hold Instructions: Until you speak with your automobile damage field appraiser
lisdexamfetamine [Vyvanse] 30 mg Capsule
30 mg PO DAILY
Hold Instructions: Until you speak with automobile damage field appraiser
Discontinued
ibuprofen [Motrin] 400 mg Tablet
400 mg PO Q6HPRN PRN (Reason: mild pain)
Discharge Orders:
Discharge Patient (As Directed); Ordered 06/08/24
Ordered By: Prateek Reece
Discharge Date and Time
Print Language: GERMAN
== END 2024-06-08 18:21 | disposition home or self-care (01) | DRG 442 ==
LOC: 4 WEST ACU 19:31
PROVIDERS: Hospitalist; Internal Medicine Gastroenterology; Nurse Practitioner Adult Health; Physician Assistant; Radiology Vascular & Interventional Radiology; ADMITTING PHYSICIAN Hospitalist; ATTENDING PHYSICIAN Internal Medicine; CONSULT PHYSICIAN Psychiatry & Neurology Psychiatry; EMERGENCY PHYSICIAN Student in an Organized Health Care Education/Training Program; FAMILY PHYSICIAN Nurse Practitioner Adult Health; OTHER PHYSICIAN Student in an Organized Health Care Education/Training Program
PROC: 0FD13ZX Extraction of Right Lobe Liver, Percutaneous Approach, Diagnostic (ICD-10-PCS; 2024-06-03)
DX: K71.9 Toxic liver disease, unspecified (principal); F31.81 Bipolar II disorder; E06.3 Autoimmune thyroiditis; F90.9 Attention-deficit hyperactivity disorder, unspecified type; F41.9 Anxiety disorder, unspecified; T49.0X5A Adverse effect of local antifungal, anti-infective and anti-inflammatory drugs, initial encounter; T43.215A Adverse effect of selective serotonin and norepinephrine reuptake inhibitors, initial encounter; T43.625A Adverse effect of amphetamines, initial encounter
CPT/HCPCS: 88307; 47000; 74183; 76700; 76942; 80053; 80143; 80178; 80179; 80306; 80307; 81003; 81015; 82140; 82248; 82390; 82550; 82728; 83540; 83550; 83690; 84439; 84703; 85025; 85027; 85384; 85610; 86015; 86038; 86308; 86381; 86663; 86664; 86665; 86704; 86705; 86706; 86708; 86709; 86803; 87086; 87340; 87502; 87811; 88313; 96361; 96374; 96375; 99152; 99285; A9575; J0132; J7030